=== PATIENT | female | born 1950 | race Caucasian/White ===

== ENCOUNTER 2018-06-29 15:51 | Inpatient (IN) | payer MEDICARE ==
[2018-06-29] VITALS (9 sets, daily range): BP systolic 84–121; BP diastolic 52–64
[~2018-06-29] VITALS: Ht 162.6 cm; Wt 115.3 kg
[~2018-06-29 15:51] MED LIST: ADVAIR DISK1 IN; ADVAIR DISK1 INH; ALPRAZOLAM0.25 MG PO; ATORVASTATIN CA40 MG PO; BAYER LOW81 MG OR; COZAAR50 MG PO; CRESTOR10 MG PO; DEXILANT60 MG PO; DUONEB INH; EC ASPIRIN325 MG PO; GABAPENTIN300 M2 PO; LANTUS SOL100 UNIT/M SC; LANTUS100 MG/ML SC; LASIX40 MG PO; LEVEMIR SC; LEVOTHYROXIN75 MCG PO; LEXAPRO20 MG PO; LOPRESSOR50 MG PO; LOSARTAN POT100 MG PO; METOCLOPRAM5 MG PO; METOPROLOL50 MG PO; NOVOLOG100 IU/1 M SC; NOVOLOG100 UNIT/M SC; NYSTATIN100000 M1 PO; PEPCID40 MG OR; PLAVIX75 MG PO; PREDNISONE10 MG PO; PREDNISONE20 MG PO; PRILOSEC20 MG/CAP PO; PROAIR HFA IN; PROTONIX40 M2 PO; PROTONIX40 MG PO; REPATHA140 MG/ML IJ; SINGULAIR10 MG PO; SPIRIVA RE1.25 MCG/A PO; VENTOLIN HFA IN; WELLBUTRIN150 M2 PO; WELLBUTRIN75 MG OR; ZOFRAN ODT8 MG SL
--- NOTE | 2018-06-29 16:05 | NUR ---
PT ARRIVED TO UNIT.
--- NOTE | 2018-06-29 16:25 | NUR ---
PT TO ICU 8 DIRECT ADMIT. PT WEIGHED & CHANGED INTO GOWN. #20 IV ESTABLISHED IN RIGHT AC, LABS DRAWN, ACCUCHECK COMPLETED 225. PHARMACY @BEDSIDE FOR MED REC
[2018-06-29 16:34] LABS: HEMATOCRIT 37.7 % (37.0-47.0); HEMOGLOBIN 12.1 g/dl (12.0-16.0); IMMATURE GRANULOCYTES 0.6 % (0.0-5.0); MEAN CELL VOLUME 86.5 fL CALC (80.0-100.0); MEAN CORPUSCULAR HGB 27.8 pG CALC (26.0-32.0); MEAN CORPUSCULAR HGB CONC 32.1 g/L CALC (32.0-36.0); NEUT# 9.04 thou/uL (2.00-7.15); RED BLOOD COUNT 4.36 mill/uL (4.20-5.60); RED CELL DISTRI WIDTH 13.8 % (11.5-15.5)
--- NOTE | 2018-06-29 16:55 | NUR ---
FOOT CRADDLE PLACED FOR COMFORT TO BILATERAL FEET. SOCKS NOT PLACED DUE TO RIGHT BIG TOENAIL. PT REQUESTED THE FAN ON IN ROOM. 1 VISITOR @BEDSIDE. PT STATES SHE HAD A "BAD REACTION" TO MORPHINE A LONG TIME AGO. STATES HER BP "BOTTOMED OUT" BUT DOES NOT WANT TO PLACE MORPHINE ON HER ALLERGY LIST. HUMAN RESOURCES ASSOCIATE NOTIFIED.
[2018-06-29 16:56] LABS: ALKALINE PHOSPHATASE 106 u/l (38-126); ANION GAP 11 (6-22 (CALC)); BILIRUBIN, TOTAL 0.3 mg/dL (0.0-1.4); BUN 22 mg/dL (8-23); BUN/CREATININE RATIO 23 (12-20 (CALC)); C-REACTIVE PROTEIN 0.9 mg/dL (0-0.9); CARBON DIOXIDE 29 mmol/l (22-30); CHLORIDE 105 mmol/l (95-108); CREATININE 0.9 mg/dL (0.5-1.0); GFR > 60 ML/MIN (>=60 (CALC)); GFR FOR AFR.AMER. > 60 ML/MIN (>=60 (CALC)); POTASSIUM 3.9 mmol/l (3.5-5.1); SGOT/AST 15 u/l (9-36); SGPT/ALT 23 u/l (11-66); SODIUM 141 mmol/l (137-146); TOTAL PROTEIN 5.6 g/dL (6.3-8.2)
[2018-06-29] MEDS ORDERED: CRESTOR5 MG PO (16:58)
[2018-06-29 17:00] LABS: ALBUMIN 3.1 g/dL (3.2-5.0)
[2018-06-29] MEDS ORDERED: RANITIDINE150 M1 PO (17:03)
[2018-06-29] MEDS ORDERED: BENADRYL25 M1 PO (17:04)
[2018-06-29] MEDS ORDERED: PREDNISONE10 MG PO (17:05)
[2018-06-29] MEDS ORDERED: DOXYCYCL HYC100 MG PO (17:06)
[2018-06-29] MEDS ORDERED: ONDANSETRON HCL4 MG PO (17:08)
[2018-06-29] MEDS ORDERED: TRIAMCINOLON0.11 TOP (17:10)
--- NOTE | 2018-06-29 17:38 | NUR ---
PT MEDICATED FOR GENERALIZED PAIN OF 7/10 FROM PAINFUL/ITCHY BLISTERS/WOUNDS. PT TALKING TO HER SISTER ON CELLPHONE. PT CONTINUE TO MONITOR PTS PAIN & COMFORT LEVEL.
--- NOTE | 2018-06-29 17:50 | NUR ---
DR NEGRON & NEGRO,BROOKE @BEDSIDE ASSESSING PT. PT ADVISED TO CALL STAFF IMMEDIATELY IF SHE HAS TROUBLE BREATHING OR SWALLOWING. PT STATES THIS STARTED RASH/HIVES IN LATE APRIL. PCP SENT HER TO [facility]. WORSENED THIS WEEK.
--- NOTE | 2018-06-29 18:01 | NUR ---
FULL LIQUID TRAY DELIVERED TO PT. 2 VISITORS @BEDSIDE.
--- NOTE | 2018-06-29 18:15 | NUR ---
FAMILY @BEDSIDE CONFIRMED PT HAS ALLERGY TO ERYTHROMYCIN, NOT AZYTHROMYCIN. ACCUCHECK 126. PT HAPPY/PLAYFUL WITH FAMILY.
--- NOTE | 2018-06-29 18:48 | NUR ---
PTS DAUGHTER STATES PCP CHANGED XANAX DOSAGE TO 0.50MG BID.
--- NOTE | 2018-06-29 19:17 | NUR ---
BEDSIDE REPORT RECEIVED FROM TASNEEM KESSLER. PT SITTING UP IN BED WITH FAMILY AT BEDSIDE; ALERT AND ORIENTED. C/O MILD PAIN TO SORES ON SKIN AND IN MOUTH. RESPIRATIONS EVEN AND UNLABORED ON 2L OF OXYGEN VIA NC. PLAN OF CARE DISCUSSED. PT ENCOURAGED TO VERABALIZE CONCERNS. STATES UNDERSTANDING. SAFETY MEASURES IN PLACE. CALL LIGHT WITHIN REACH.
--- NOTE | 2018-06-29 21:58 | NUR ---
PT RESTING IN BED NOW ON LEFT SIDE; VS STABLE AND BLOOD SUGARS NORMAL. ALL MEDICATIONS GIVEN AND PT REPORTS SOME PAIN RELIEF AFTER TRIAMCINOLONE CREAM WAS APPLIED TO BLISTERS. HS SNACK GIVEN. IV SITE TO RAC APPEARS HEALTHY AND FLUSHES. CALL LIGHT WITHIN REACH.
[2018-06-30] VITALS (8 sets, daily range): BP systolic 122–156; BP diastolic 46–85
--- NOTE | 2018-06-30 00:01 | NUR ---
UP TO BATHROOM TO VOID AT THIS TIME; PT AMBULATED WITH ONE PERSON ASSIST. HAS SOME EXERTIONAL SOB. OXYGEN SATURATIONS REMAIN ABOVE 90% ON OXYGEN; NO SIGNS OF RESPIRATORY DISTRESS. MIDNIGHT ACCU CHECK 119. PT HAS NO REQUESTS OR CONCERNS AT THIS TIME; VERY PLEASANT. CALL LIGHT SYSTEM REVIEWED AND WITHIN REACH.
--- NOTE | 2018-06-30 02:16 | NUR ---
PT ASLEEP WITH NO SIGNS OF DISTRESS ON LEFT SIDE; RESPIRATIONS EVEN AND UNLABORED ON OXYGEN. BLOOD SUGAR DECREASING; WILL CONTINUE TO MONITOR. CALL LIGHT IN REACH.
--- NOTE | 2018-06-30 04:30 | NUR ---
PT WITH RESTESS SLEEP AT THIS TIME; SNORING NOTED AND SHORT PERIODS OF APNEA; OXYGEN SATURATION DECREASES TO LOW 80'S DURING THESE TIMES AND IMMEDIATELY INCREASES TO 90'S. VS STABLE. ACCU CHECK WNL.
--- NOTE | 2018-06-30 06:20 | NUR ---
PT AWAKENED WITH VERBAL STIMULI FOR MORNING MEDICATIONS. SHE STATES THAT SHE SLEPT WELL. AMBULATED TO THE BATHROOM WITH UNSTEADY GAIT AT THIS TIME TO VOID. NO ACUTE CHANGES IN CONDITION THROUGHOUT THE NIGHT. SAFETY MEASURES IN PLACE. CALL LIGHT WITHIN REACH.
--- NOTE | 2018-06-30 07:20 | NUR ---
REPORT RECEIVED FROM TASNEEM BENJAMIN;PT RESTING IN SEMI FOWLERS POSITION;INTRODUCED SELF TO PT AND POC DISCUSSED;PT ALERT AND ORIENTED X3;VS OBTAINED AND ASSESSMENT COMPLETED;RESPIRATIONS EVEN AND UNLABORED,SHALLOW ON OXYGEN @ 2L VIA NC WITH 98% O2 SATURATION,NON-PRODUCTIVE COUGH NOTED AT TIMES;ABDOMEN DISTENDED/SOFT ON PALPATION AND ACTIVE IN ALL 4 QUADRANTS;STRONG PEDAL PULSES;ACCUCHECK OF 143 OBTAINED AND WNL;#20G TO RAC FLUSHED AND PATENT,SITE APPEARS HEALTHY AND IS SECURED WITH TAPE;OPENED AND SCABBED SORES NOTED THROUGHOUT BODY,PT DENIES ANY CURRENT PAIN STATES "JUST ITCHY AT TIMES";PAIN SCALE AND REPORTING EDUCATED;PT VERY PLEASANT;ALL SAFETY PRECAUTIONS REINFORCED;INSTUCTED PT TO CALL FOR ASSISTANCE IF NEEDED;FALL PRECAUTIONS IN PLACE WITH BED IN THE LOWEST POSITION;CALL LIGHT IN REACH;WILL CONTINUE TO MONITOR
--- NOTE | 2018-06-30 09:00 | NUR ---
PT APPEARS TO BE SLEEPING IN SEMI FOWLERS POSITION,WAKES EASILY TO VERBAL STIMULI;RESPIRATIONS REMAIN EVEN AND UNLABORED,SHALLOW ON OXYGEN @ 2L VIA NC;EXERTIONAL SOB NOTED AT TIMES;PT DENIES ANY CURRENT PAIN OR NEEDS;ACCUCHECK OF 215 OBTAINED;ALL MORNING MEDICATIONS ADMINISTERED AT THIS TIME AND PT TOLERATED WELL;IV SITE REMAINS PATENT TO RAC;PT INSTRUCTED TO CALL FOR ASSISTANCE IF NEEDED;FALL PRECAUTIONS REMAIN IN PLACE;CALL LIGHT IN REACH;WILL CONTINUE TO MONITOR
--- NOTE | 2018-06-30 11:20 | NUR ---
PT RESTING IN SEMI FOWLERS POSI
--- NOTE | 2018-06-30 11:20 | NUR ---
PT RESTING IN SEMI FOWLERS POSITION;RESPIRATIONS EVEN AND UNLABORED ON O2 @ 2L VIA NC;PT DENIES ANY CURRENT PAIN OR NEEDS;ACCUCHECK OF 227 OBTAINED;ASSESSMENT UNCHARGED AT THIS TIME;LUNCH TRAY SET UP PROVIDED;PT ENCOURAGED TO CALL FOR ASSISTANCE IF NEEDED;CALL LIGHT IN REACH;WILL CONTINUE TO MONITOR
--- NOTE | 2018-06-30 11:30 | NUR ---
PT AMBULATED WITH A 1 PERSON ASSIST AND UNSTEADY GAIT TO RESTROOM AND VOIDED CLEAR/YELLOW URINE;PT ALSO HAD A LARGE BROWN/FORMED BM;ORAL CARE PROVIDED;PT RE-POSITIONED BACK INTO BED;EXERTIONAL SOB NOTED WITH O2 SATURATIONS REMAINING ABOVE 90% AT ALL TIMES;PT DENIES ANY ADDITIONAL NEEDS;WILL CONTINUE TO MONITOR
--- NOTE | 2018-06-30 15:00 | NUR ---
PT RESTING IN SEMI FOWLERS POSITION;PT AMBULATED WITH 1 PERSON ASSIST AND UNSTEADY GAIT TO RESTROOM AND VOIDED CLEAR/YELLOW URINE;PT DENIES ANY CURRENT PAIN;RESPIRATIONS EVEN AND UNLABORED ON 02 @ 2L VIA NC;PT AND WRITTER DISCUSS POC AND PT VERBALIZES UNDERSTANDING ON TRANSFER TO MED/SURG;FALL PRECAUTIONS REMAIN IN PLACE WITH CALL LIGHT IN REACH;WILL CONTINUE TO MONITOR
--- NOTE | 2018-06-30 15:40 | NUR ---
PT TRANSFERRED TO MED/SURG ROOM 272 AT THIS TIME IN STABLE CONDITION RELINQUISH CARE TO TASNEEM KEENAN.
--- NOTE | 2018-06-30 15:42 | NUR ---
PT CAME FROM ICU VIA WHEELCHAIR BY MUSEUM DOCENT. MUSEUM DOCENT ASSIST PT TO SCALE THEN TO BED. SAFETY PRECAUTIONS REINFORCED AND CALL LIGHT IN REACH.
--- NOTE | 2018-06-30 16:40 | NUR ---
ASSESSMENT DONE TELE IN PLACE. PT IS A&O X3 . PT DENIES PAIN AT THIS TIME. PT STATED SHE IS ITCHY. PT HAS SCATTERED RASH WITH BILSTERS AND LESIONS IN HER BODY. O2 AT 2L/MIN VIA NC. CALL LIGHT IN REACH.
--- NOTE | 2018-06-30 19:42 | NUR ---
PT RESTING IN BED WATCHING TV. PT DENIES PAIN. RESP EVEN AND UNLABORED WITH O2 2L IN PLACE. TELE ON. LUNGS CLEAR BILAT. ABD SOFT, ACTIVE BOWEL SOUNDS. PEDAL PULSES PALPATED BILAT. IV RAC PATENT; FLUSHED WITHOUT DIFFICULTY. SCATTERED RASH WITH BLISTERS AND LESIONS ON BACK, ARMS, ABD, AND LEGS. PT REPOSITIONED FOR COMFORT. SAFETY PRECAUTIONS REINFORCED. FREQUENT ROUNDS MADE. CALL LIGHT WITHIN REACH.
--- NOTE | 2018-06-30 20:53 | NUR ---
ACCU CHECK: 423. PHONE CALL MADE TO DR DARRYL DR NOTIFIED OF ACCU CHECK AND THAT STAT BLOOD GLUCOSE WAS ORDERED. NO NEW ORDERS AT THIS TIME.
[2018-07-01] VITALS (7 sets, daily range): BP systolic 113–149; BP diastolic 52–77
--- NOTE | 2018-07-01 00:10 | NUR ---
PT SLEEPING WITH EYES CLOSED. RESP EVEN AND UNLABORED WITH O2 IN PLACE. NO DISTRESS NOTED. TELE ON. CALL LIGHT WITHIN REACH.
--- NOTE | 2018-07-01 04:15 | NUR ---
ASSESSMENT UNCHANGED, PT SLEEPING WITH EYES CLOSED. NO DISTRESS NOTED. TELE ON. CALL LIGHT WITHIN REACH.
--- NOTE | 2018-07-01 09:00 | NUR ---
PT AWAKE, ALERT, ORIENTED X 3. PT HAS RASHY, SCALY, BLISTERY SKIN, WHICH IS BEING TREATED. NO DISTRESS, NO COMPLAINTS OF PAIN.
--- NOTE | 2018-07-01 09:30 | NUR ---
WHILE SITTING IN CHAIR, PT APPARENTLY KICKED AGAINST BEDSIDE TABLE. GREAT TOENAIL ON RIGHT SIDE WAS ALMOST COMPLETELY REMOVED. TOENAIL WAS NOT ABLE TO BE FIT BACK INTO PLACE, SO IT WAS SNIPPED OFF. NEOSPORIN WAS THEN APPLIED TO NAILBED AND WOUND WAS WRAPPED APPROPRIATELY. PT TOLERATED ALL WELL, STATES THAT SHE HAS PERIPHERAL NEUROPATHY AND DOES NOT FEEL ANYTHING THERE ANYWAY.
--- NOTE | 2018-07-01 13:15 | NUR ---
DR ANDREWS IN TO SEE PT, SEES IMPROVEMENT IN HER STATUS. PT STATES THE ITCHING IS LESS THAN EARLIER, RELIEVED.
--- NOTE | 2018-07-01 17:37 | NUR ---
PT HAS BEEN RESTING IN THE BED, NO DISTRESS, NO COMPLAINTS.
--- NOTE | 2018-07-01 19:40 | NUR ---
PT RESTING IN BED WATCHING TV. PT ALERT AND ORIENTED. PT DENIES PAIN. RESP EVEN AND UNLABORED ON O2 2L. TELE ON. LUNGS CLEAR BILAT. ABD SOFT, ACTIVE BOWEL SOUNDS. PT REPORTS HAVING A BM TODAY. PEDAL PULSES PALPATED BILAT. IV RAC PATENT; FLUSHED WITHOUT DIFFICULTY. SCATTERED RASH WITH BLISTERS AND LESIONS ON BACK, ARMS, ABD AND LEGS. PT REPORTS IMPROVEMENT IN SKIN. PT ENCOURAGED TO CALL FOR ASSISTANCE. FREQUENT ROUNDS MADE. CALL LIGHT WITHIN REACH.
--- NOTE | 2018-07-02 | NUR ---
PT WOKE FOR VITALS. RESP EVEN AND UNLABORED WITH O2. PT DENIES PAIN. TELE ON. CALL LIGHT WITHIN REACH.
[2018-07-02 04:02] VITALS: BP 114/51
--- NOTE | 2018-07-02 04:02 | NUR ---
PT WOKE FOR MORNING VITALS. ASSESSMENT UNCHANGED. RESP EVEN AND UNLABORED WITH O2 2L IN PLACE. PT REPORTS BEING TIRED AND WANTING TO GO BACK TO SLEEP. CALL LIGHT WITHIN REACH.
--- NOTE | 2018-07-02 06:00 | NUR ---
PHONE CALL FROM [employer] NELLA IN REGARDS TO PT HR, "SINUS TACH 120". UPON ENTRY IN ROOM PT WAS SITTING ON SIDE OF BED. PT REPORTED GETTING OUT OF BED WITHOUT ASSISTANCE. PT REPORTED " I DID NOT WANT TO BOTHER ANYONE, I DID SLIP AND MY LEFT KNEE HIT THE CHAIR. I AM NOT HURT ANYWHERE." NO SIGNS OF TRAUMA ON LEFT KNEE, FULL RANGE OF MOTION. PT STATES "I DID NOT HIT THE FLOOR." PT ALSO STATES " I KNOW I SHOULD HAVE CALLED FOR ASSISTANCE, IT WON'T HAPPEN AGAIN." PETROLEUM REFINERY WORKER LITO CALLED TO FLOOR AND NOTIFIED OF SITUATION. PT HAD BEEN ENCOURAGED TO CALL FOR ASSISTANCE TO AMBULATE. BED ALARM NOW IN PLACE FOR SAFETY. MD WILL BE NOTIFIED WITH ANY CHANGE IN PT CONDITION. SAFETY PRECAUTIONS REINFORCED. FREQUENT ROUNDS MADE. CALL LIGHT WITHIN REACH.
[2018-07-02 08:00] VITALS: BP 127/59
--- NOTE | 2018-07-02 08:10 | NUR ---
PT AWAKE, ALERT, ORIENTED. PT STATES THAT HER SKIN CONDITION IS IMPROVING DAILY. LUNGS CLEAR, 2 LPM. NO DISTRESS OR DISCOMFORT NOTED.
--- NOTE | 2018-07-02 12:47 | NUR ---
IV SITE CHANGED PER OCCLUSION. NO CHANGE IN PT STATUS NOTED.
[2018-07-02 13:23] VITALS: BP 115/62
[2018-07-02 16:00] VITALS: BP 124/74
--- NOTE | 2018-07-02 16:06 | NUR ---
PT HAS BEEN CALLING APPROPRIATELY NEEDED TO WALK TO BR. NO REPORT OF PAIN, NO DISTRESS NOTED. PT PROVIDED VISCOUS LIDOCAINE PER MOUTH AND THROAT DISCOMFORT.
--- NOTE | 2018-07-02 18:19 | NUR ---
PT MEDICATED FOR DISCOMFORT, HELPED BY TYLENOL.
--- NOTE | 2018-07-02 19:00 | NUR ---
RECEIVED CHANGE OF SHIFT REPORT FROM TASNEEM BELL. PT ALERT AND ORIENTED AND LYING IN BED. DENIES PAIN. NO APPARENT ACUTE DISTRESS NOTED. WILL CONTINUE TO MONITOR.
--- NOTE | 2018-07-03 | NUR ---
PT RESTING QUIETLY WITH EYES CLOSED AND APPEARS TO BE ASLEEP. RESP EVEN AND NON LABORED. NO APPARENT ACUTE DISTRESS NOTED AT THIS TIME. WILL CONTINUE TO MONITOR.
[2018-07-03 00:06] VITALS: BP 140/67
[2018-07-03 05:21] VITALS: BP 140/76
[2018-07-03 07:30] VITALS: BP 126/30
--- NOTE | 2018-07-03 07:30 | NUR ---
PT IS RELAXING IN BED WITH NO DISTRESS NOTED. IV SITE IS FREE FROM REDNESS OR EDEMA. HR IS REG, PULSES ARE STRONG X4, ABD IS SOFT WITH ACTIVE BS. BREATH SOUNDS ARE CLEAR, BILATERALLY. CONTINUE TO OSBERVE AND MONITOR. TELE MONITOR IN PLACE.
[2018-07-03 09:27] LABS: MEAN CELL VOLUME 86.9 fL CALC (80.0-100.0); MEAN CORPUSCULAR HGB 27.8 pG CALC (26.0-32.0); RED BLOOD COUNT 5.11 mill/uL (4.20-5.60); RED CELL DISTRI WIDTH 13.3 % (11.5-15.5)
[2018-07-03 09:39] LABS: HEMATOCRIT 44.4 % (37.0-47.0); HEMOGLOBIN 14.2 g/dl (12.0-16.0)
[2018-07-03 09:47] LABS: BUN 25 mg/dL (8-23); BUN/CREATININE RATIO 25 (12-20 (CALC)); GFR 55 ML/MIN (>=60 (CALC)); GFR FOR AFR.AMER. > 60 ML/MIN (>=60 (CALC)); MAGNESIUM 2.3 mg/dL (1.6-2.3); POTASSIUM 4.6 mmol/l (3.5-5.1); SODIUM 139 mmol/l (137-146)
[2018-07-03 09:58] LABS: ANION GAP 14 (6-22 (CALC)); CARBON DIOXIDE 40 mmol/l (22-30); CHLORIDE 90 mmol/l (95-108)
--- NOTE | 2018-07-03 12:00 | NUR ---
PT HAS BEEN VISITING WITH FAMILY,NO DISTRESS NOTED. IV SITE IS FREE FROM REDNESS OR EDEMA. SAT IN THE CHAIR FOR LUNCH, CONTINUE TO OBSERVE AND MONITOR.
[2018-07-03 12:30] VITALS: BP 139/70
[2018-07-03 16:00] VITALS: BP 178/87
--- NOTE | 2018-07-03 16:00 | NUR ---
PT IS RELAXING IN BED WITH NO DISTRESS NOTED. IV SITE IS FREE FROM REDNESS OR EDEMA.
--- NOTE | 2018-07-03 19:00 | NUR ---
RECEIVED CHANGE OF SHIFT REPORT FROM HUDSON VALLECILLO. PT ALERT AND ORIENTED AND LYING 1N BED. DENIES PAIN OR DISCOMFORT AT THIS TIME. NO APPARENT ACUTE DISTRESS NOTED. WILL CONTINUE TO MONITOR.
[2018-07-03 22:20] LABS: URINE BILIRUBIN - DIPSTICK NEGATIVE (NEGATIVE); URINE BLOOD DIPSTICK NEGATIVE (NEGATIVE); URINE COLOR YELLOW; URINE GLUCOSE - DIPSTICK >=1000 mg/dL (NEGATIVE); URINE KETONE NEGATIVE (NEGATIVE); URINE LEUK ESTERASE NEGATIVE (NEGATIVE); URINE NITRITE - DIPSTICK NEGATIVE (Negative); URINE PROTEIN - DIPSTICK NEGATIVE (NEG-TRACE); URINE SPECIFIC GRAVITY 1.015; URINE UROBILINOGEN - DIPSTICK 0.2 E.U./dL (0.2)
[2018-07-03 22:23] LABS: URINE CLARITY CLEAR
--- NOTE | 2018-07-04 | NUR ---
PT RESTING QUIETLY WITH EYES CLOSED AND APPEARS TO BE ASLEEP. NO APPARENT ACUTE DISTRESS NOTED. WILL CONTINUE TO MONITOR.
[2018-07-04 00:35] VITALS: BP 125/56
[2018-07-04 04:27] VITALS: BP 138/69
--- NOTE | 2018-07-04 05:00 | NUR ---
PT SLEPT WELL DURING IN THE NIGHT. NO APPARENT ACUTE CHANGES NOTED IN PT'S CONDITION.
[2018-07-04 05:26] LABS: ANION GAP 12 (6-22 (CALC)); BUN 28 mg/dL (8-23); BUN/CREATININE RATIO 30 (12-20 (CALC)); CARBON DIOXIDE 35 mmol/l (22-30); CHLORIDE 96 mmol/l (95-108); CREATININE 0.9 mg/dL (0.5-1.0); GFR > 60 ML/MIN (>=60 (CALC)); GFR FOR AFR.AMER. > 60 ML/MIN (>=60 (CALC)); MAGNESIUM 2.3 mg/dL (1.6-2.3); POTASSIUM 4.7 mmol/l (3.5-5.1); SODIUM 138 mmol/l (137-146)
--- NOTE | 2018-07-04 07:00 | NUR ---
REPORT RECEIVED FROM TASNEEM NATION;PT APPEARS TO BE SLEEPING IN SUPINE POSITION;NO S/S OF DISTRESS NOTED;RESPIRATIONS EVEN AND UNLABORED ON RA;IV FLUIDS APPEAR PATENT INFUSING @ 100ML/HR;TELE MONITOR IN PLACE;FALL PRECAUTIONS IN PLACE WITH BED IN THE LOWEST POSITION;CALL LIGHT IN REACH;WILL CONTINUE TO MONITOR
--- NOTE | 2018-07-04 07:30 | NUR ---
PT OOB RESTING IN RECLINER EATING BREAKFAST;VS OBTAINED AND ASSESSMENT COMPLETED;PT DENIES ANY CURRENT PAIN OR DISCOMFORTS,PAIN SCALE AND REPORTING RE-EDUCATED;RESPIRATIONS EVEN AND UNLABORED,SHALLOW ON 02 @ 2L VIA NC,CLEAR LUNG SOUNDS NOTED;NON-PRODUCTIVE COUGH NOTED;ABDOMEN DISTENDED/SOFT ON PALPATION AND ACTIVE IN ALL 4 QUADRANTS;DRIED BLISTERS NOTED THROUGHOUT,BAND AID NOTED TO RIGHT GREATER TOE FROM LOSS OF TOENAIL;TELE MONITOR IN PLACE;#20G TO RIGHT FOREARM INFUSING NS @ 100ML/HR,SITE APPEARS HEALTHY;ACCUCHECK OF 231 OBTAINED;PT DENIES ANY CURRENT NEEDS AND IS INSTUCTED TO CALL FOR ASSISTANCE IF NEEDED;FALL PRECAUTIONS IN PLACE WITH CALL LIGHT IN REACH;WILL CONTINUE TO MONITOR
[2018-07-04 07:34] VITALS: BP 168/80
--- NOTE | 2018-07-04 10:45 | NUR ---
PT AMBULATING HALLWAYS WITH PHYSICAL THERAPY
--- NOTE | 2018-07-04 10:53 | NUR ---
PT WAS SEEN TODAY FOR GT. OOB INDEPENDENTLY. AMB WITH IV POLE WHILE THERAPIST HOLDS THE O2 TANK. SHE COMPLETED AT LEAST 70 FT. X 4 WITH 1 MIN. REST PERIOD IN BETWEEN SETS. SOB WAS NOTED HOWEVER SPO2 REMAINED BETWEEN 99-93%. PT RETURNED BACK TO HER ROOM AND REQUESTED TO SIT IN THE RECLINER. REATTACHED IV PLUG AND O2 CORD TO WALL O2 SUPPLY. DESIRE LA BESIDE HER. NO ADVERSE RXNS NOTED OR REPORTED AT THE END OF TX.
[2018-07-04 11:03] VITALS: BP 160/81
--- NOTE | 2018-07-04 11:10 | NUR ---
PT OOB RESTING IN RECLINER;RESPIRATIONS EVEN AND UNLABORED ON O2 @ 2L VIA NC;PT DENIES ANY CURRENT PAIN OR NEEDS;ACCUCHECK OF 285 OBTAINED AND PT MEDICATED WITH 7 UNITS OF NOVOLOG PER ORDER;IV FLUIDS REMAIN PATENT INFUSING @ 100ML/HR;PT ENCOURAGED TO CALL FOR ASSISTANCE IF NEEDED;FALL PRECAUTIONS IN PLACE WITH CALL LIGHT IN REACH;WILL CONTINUE TO MONITOR
[2018-07-04] MEDS ORDERED: PREDNISONE20 MG PO (12:53)
[2018-07-04] MEDS ORDERED: TRAMADOL HCL50 MG PO (12:55)
[2018-07-04] MEDS ORDERED: ALPRAZOLAM0.25 MG PO (12:55)
[2018-07-04 15:21] VITALS: BP 146/67
--- NOTE | 2018-07-04 15:30 | NUR ---
PT UPDATED ON POC AND DISCHARGE TO [facility],VERBALIZES UNDERSTANDING;IV SITE REMOVED WITH CATHETER INTACT;PT DENIES ANY PAIN OR QUESTIONS;AWAITING TRANSPORTATION.
--- NOTE | 2018-07-04 16:27 | NUR ---
Discharge instructions given. Patient verbalizes understanding of same. Discharged in stable condition via [facility] with *Other. All belongings sent with pt.
== END 2018-07-04 16:27 | DRG 596 ==
LOC: ICU 15:51 → MS2 15:51
PROVIDERS: Nurse Practitioner Family; ADMIT Internal Medicine; ATTEND Internal Medicine
PROC: 3E0234Z Introduction of Serum, Toxoid and Vaccine into Muscle, Percutaneous Approach (ICD-10-PCS; principal; 2018-07-01)
DX: L10.0 Pemphigus vulgaris (principal); Z68.42 Body mass index [BMI] 45.0-49.9, adult; L50.9 Urticaria, unspecified; I25.10 Atherosclerotic heart disease of native coronary artery without angina pectoris; I10 Essential (primary) hypertension; J44.9 Chronic obstructive pulmonary disease, unspecified; E11.65 Type 2 diabetes mellitus with hyperglycemia; T38.0X5A Adverse effect of glucocorticoids and synthetic analogues, initial encounter; E66.01 Morbid (severe) obesity due to excess calories; E03.9 Hypothyroidism, unspecified; F41.1 Generalized anxiety disorder; M19.90 Unspecified osteoarthritis, unspecified site; R53.81 Other malaise; Z79.4 Long term (current) use of insulin; Z23 Encounter for immunization; Z95.1 Presence of aortocoronary bypass graft; Z86.73 Personal history of transient ischemic attack (TIA), and cerebral infarction without residual deficits
CPT/HCPCS: S0164

== ENCOUNTER 2018-07-19 16:21 | Emergency (ER) | payer MEDICARE ==
[~2018-07-19] VITALS: Ht 162.6 cm; Wt 116.6 kg
[~2018-07-19 16:21] MED LIST changes: +BENADRYL25 M1 PO; +CRESTOR5 MG PO; +DOXYCYCL HYC100 MG PO; +ONDANSETRON HCL4 MG PO; +RANITIDINE150 M1 PO; +TRAMADOL HCL50 MG PO; +TRIAMCINOLON0.11 TOP
[2018-07-19 16:34] LABS: HEMATOCRIT 44.9 % (37.0-47.0); HEMOGLOBIN 14.7 g/dl (12.0-16.0); IMMATURE GRANULOCYTES 0.9 % (0.0-5.0); MEAN CELL VOLUME 84.2 fL CALC (80.0-100.0); MEAN CORPUSCULAR HGB 27.6 pG CALC (26.0-32.0); MEAN CORPUSCULAR HGB CONC 32.7 g/L CALC (32.0-36.0); NEUT# 15.53 thou/uL (2.00-7.15); RED BLOOD COUNT 5.33 mill/uL (4.20-5.60); RED CELL DISTRI WIDTH 13.6 % (11.5-15.5)
[2018-07-19 16:47] VITALS: BP 90/51
[2018-07-19 16:56] LABS: CREATININE 1.3 mg/dL (0.5-1.0); POTASSIUM 3.9 mmol/l (3.5-5.1)
== END 2018-07-19 16:47 | disposition short-term general hospital (02) ==
LOC: ED 16:21
PROVIDERS: Family Medicine
DX: I63.9 Cerebral infarction, unspecified (principal); I48.91 Unspecified atrial fibrillation; R29.810 Facial weakness; R47.1 Dysarthria and anarthria; R27.8 Other lack of coordination; R53.1 Weakness; R29.706 NIHSS score 6; F41.9 Anxiety disorder, unspecified; I10 Essential (primary) hypertension; E11.9 Type 2 diabetes mellitus without complications; M19.90 Unspecified osteoarthritis, unspecified site; L10.0 Pemphigus vulgaris; Z86.73 Personal history of transient ischemic attack (TIA), and cerebral infarction without residual deficits; Z79.4 Long term (current) use of insulin

== ENCOUNTER 2018-07-31 15:20 | Inpatient (IN) | payer MEDICARE ==
[2018-07-31] VITALS (8 sets, daily range): BP systolic 114–130; BP diastolic 41–62
[~2018-07-31] VITALS: Ht 162.6 cm; Wt 107.2 kg
[~2018-07-31 15:20] MED LIST changes: +DEXILANT30 MG PO; -DEXILANT60 MG PO; -LOSARTAN POT100 MG PO; +LOSARTAN POT25 MG PO
[2018-07-31 17:09] LABS: HEMATOCRIT 35.5 % (37.0-47.0); HEMOGLOBIN 11.7 g/dl (12.0-16.0); IMMATURE GRANULOCYTES 0.9 % (0.0-5.0); MEAN CORPUSCULAR HGB 28.7 pG CALC (26.0-32.0); NEUT# 14.15 thou/uL (2.00-7.15); RED BLOOD COUNT 4.08 mill/uL (4.20-5.60); RED CELL DISTRI WIDTH 15.3 % (11.5-15.5)
[2018-07-31 17:25] LABS: ACT PARTIAL THROMBO TIME 22.3 SECONDS (20.0-32.5); PROTHROMBIN TIME 10.7 SECONDS (9.0-12.5)
[2018-07-31 17:27] LABS: ALBUMIN 2.8 g/dL (3.2-5.0); BILIRUBIN, TOTAL 0.4 mg/dL (0.0-1.4); CREATININE 1.1 mg/dL (0.5-1.0); POTASSIUM 5.1 mmol/l (3.5-5.1); TOTAL PROTEIN 4.9 g/dL (6.3-8.2)
[2018-07-31] MEDS ORDERED: ASPIRIN81 MG PO (17:47)
[2018-07-31] MEDS ORDERED: DIGOX250 MCG PO (17:52)
[2018-07-31 17:57] LABS: TSH, 3RD GENERATION 0.24 uIU/mL (0.47 - 4.68)
[2018-07-31] MEDS ORDERED: SINGULAIR10 MG PO (18:08)
[2018-07-31] MEDS ORDERED: PREDNISONE20 MG PO (18:08)
[2018-08-01] VITALS (10 sets, daily range): BP systolic 98–137; BP diastolic 35–71
[2018-08-01 05:07] LABS: HEMATOCRIT 35.9 % (37.0-47.0); HEMOGLOBIN 11.7 g/dl (12.0-16.0); MEAN CELL VOLUME 87.1 fL CALC (80.0-100.0); MEAN CORPUSCULAR HGB 28.4 pG CALC (26.0-32.0); MEAN CORPUSCULAR HGB CONC 32.6 g/L CALC (32.0-36.0); NEUT# 11.65 thou/uL (2.00-7.15); RED BLOOD COUNT 4.12 mill/uL (4.20-5.60); RED CELL DISTRI WIDTH 15.1 % (11.5-15.5)
[2018-08-01 05:21] LABS: ALBUMIN 2.9 g/dL (3.2-5.0); ALKALINE PHOSPHATASE 193 u/l (38-126); ANION GAP 11 (6-22 (CALC)); BILIRUBIN, TOTAL 0.3 mg/dL (0.0-1.4); BUN 26 mg/dL (8-23); BUN/CREATININE RATIO 31 (12-20 (CALC)); CARBON DIOXIDE 32 mmol/l (22-30); CHLORIDE 99 mmol/l (95-108); CREATININE 0.8 mg/dL (0.5-1.0); GFR > 60 ML/MIN (>=60 (CALC)); GFR FOR AFR.AMER. > 60 ML/MIN (>=60 (CALC)); MAGNESIUM 2.1 mg/dL (1.6-2.3); POTASSIUM 4.6 mmol/l (3.5-5.1); SGOT/AST 22 u/l (9-36); SGPT/ALT 146 u/l (11-66); SODIUM 137 mmol/l (137-146)
[2018-08-01 10:31] LABS: URINE BILIRUBIN - DIPSTICK NEGATIVE (NEGATIVE); URINE BLOOD DIPSTICK SMALL (NEGATIVE); URINE COLOR YELLOW; URINE GLUCOSE - DIPSTICK 500 mg/dL (NEGATIVE); URINE KETONE NEGATIVE (NEGATIVE); URINE LEUK ESTERASE NEGATIVE (Negative); URINE NITRITE - DIPSTICK NEGATIVE (Negative); URINE PROTEIN - DIPSTICK 30 mg/dL (NEG-TRACE); URINE SPECIFIC GRAVITY >=1.030; URINE UROBILINOGEN - DIPSTICK 0.2 E.U./dL (0.2)
[2018-08-01 10:34] LABS: URINE AMORPH SEDIMENT MODERATE hpf (NONE-FEW); URINE BACTERIA FEW hpf; URINE CLARITY HAZY; URINE EPITHELIAL CELLS MODERATE EPI/hpf (0-FEW); URINE WBC 0-2 WBC/hpf (0-5)
[2018-08-02] VITALS (18 sets, daily range): BP systolic 88–147; BP diastolic 45–83
[2018-08-03] VITALS (18 sets, daily range): BP systolic 101–170; BP diastolic 42–69
[2018-08-03 05:04] LABS: HEMATOCRIT 37.1 % (37.0-47.0); HEMOGLOBIN 11.8 g/dl (12.0-16.0); IMMATURE GRANULOCYTES 0.8 % (0.0-5.0); MEAN CELL VOLUME 87.7 fL CALC (80.0-100.0); MEAN CORPUSCULAR HGB 27.9 pG CALC (26.0-32.0); MEAN CORPUSCULAR HGB CONC 31.8 g/L CALC (32.0-36.0); NEUT# 7.29 thou/uL (2.00-7.15); RED BLOOD COUNT 4.23 mill/uL (4.20-5.60); RED CELL DISTRI WIDTH 15.2 % (11.5-15.5)
[2018-08-03 05:22] LABS: ALBUMIN 2.7 g/dL (3.2-5.0); ALKALINE PHOSPHATASE 197 u/l (38-126); ANION GAP 9 (6-22 (CALC)); BILIRUBIN, TOTAL 0.3 mg/dL (0.0-1.4); BUN 20 mg/dL (8-23); BUN/CREATININE RATIO 25 (12-20 (CALC)); CARBON DIOXIDE 37 mmol/l (22-30); CHLORIDE 97 mmol/l (95-108); CREATININE 0.8 mg/dL (0.5-1.0); GFR > 60 ML/MIN (>=60 (CALC)); GFR FOR AFR.AMER. > 60 ML/MIN (>=60 (CALC)); MAGNESIUM 2.1 mg/dL (1.6-2.3); POTASSIUM 4.9 mmol/l (3.5-5.1); SGPT/ALT 159 u/l (11-66); SODIUM 138 mmol/l (137-146)
[2018-08-03 05:23] LABS: SGOT/AST 76 u/l (9-36)
[2018-08-04] VITALS (19 sets, daily range): BP systolic 50–152; BP diastolic 37–76
[2018-08-05] VITALS (10 sets, daily range): BP systolic 113–147; BP diastolic 50–69
[2018-08-05] MEDS ORDERED: LOPRESSOR 550 MG/TAB PO (13:15)
[2018-08-05] MEDS ORDERED: ELIQUIS2.5 MG PO (13:17)
[2018-08-05] MEDS ORDERED: AMIODARONE200 MG PO (13:25)
[2018-08-05 14:38] LABS: URINE BILIRUBIN - DIPSTICK NEGATIVE (NEGATIVE); URINE BLOOD DIPSTICK NEGATIVE (NEGATIVE); URINE COLOR YELLOW; URINE GLUCOSE - DIPSTICK >=1000 mg/dL (NEGATIVE); URINE KETONE NEGATIVE (NEGATIVE); URINE LEUK ESTERASE NEGATIVE (Negative); URINE NITRITE - DIPSTICK NEGATIVE (Negative); URINE PH 5.5 (4.5-8.0); URINE PROTEIN - DIPSTICK NEGATIVE (NEG-TRACE); URINE UROBILINOGEN - DIPSTICK 0.2 E.U./dL (0.2)
[2018-08-05 14:49] LABS: URINE CLARITY CLEAR
== END 2018-08-05 15:45 | DRG 309 ==
LOC: ICU 15:20
PROVIDERS: ADMIT Internal Medicine; ATTEND Internal Medicine Nephrology
DX: R00.1 Bradycardia, unspecified (principal); L10.0 Pemphigus vulgaris; Z68.41 Body mass index [BMI] 40.0-44.9, adult; N17.9 Acute kidney failure, unspecified; N39.0 Urinary tract infection, site not specified; T46.2X5A Adverse effect of other antidysrhythmic drugs, initial encounter; T46.0X5A Adverse effect of cardiac-stimulant glycosides and drugs of similar action, initial encounter; T44.7X5A Adverse effect of beta-adrenoreceptor antagonists, initial encounter; I49.5 Sick sinus syndrome; I10 Essential (primary) hypertension; E11.65 Type 2 diabetes mellitus with hyperglycemia; J44.9 Chronic obstructive pulmonary disease, unspecified; I25.10 Atherosclerotic heart disease of native coronary artery without angina pectoris; M19.90 Unspecified osteoarthritis, unspecified site; F41.9 Anxiety disorder, unspecified; D64.9 Anemia, unspecified; E66.01 Morbid (severe) obesity due to excess calories; I08.0 Rheumatic disorders of both mitral and aortic valves; G47.33 Obstructive sleep apnea (adult) (pediatric); I48.1 Persistent atrial fibrillation; T38.0X5A Adverse effect of glucocorticoids and synthetic analogues, initial encounter; B96.20 Unspecified Escherichia coli [E. coli] as the cause of diseases classified elsewhere; Z86.73 Personal history of transient ischemic attack (TIA), and cerebral infarction without residual deficits; Z79.02 Long term (current) use of antithrombotics/antiplatelets; Z79.4 Long term (current) use of insulin; Z95.1 Presence of aortocoronary bypass graft
CPT/HCPCS: S0164

== ENCOUNTER 2018-10-17 14:16 | Inpatient (IN) | payer MEDICARE ==
[~2018-10-17] VITALS: Ht 162.6 cm; Wt 112.5 kg
[~2018-10-17 14:16] MED LIST changes: +AMIODARONE200 MG PO; +ASPIRIN81 MG PO; +DIGOX250 MCG PO; +ELIQUIS2.5 MG PO; +LOPRESSOR 550 MG/TAB PO
[2018-10-17 14:52] LABS: URINE BILIRUBIN - DIPSTICK NEGATIVE (NEGATIVE); URINE BLOOD DIPSTICK NEGATIVE (NEGATIVE); URINE COLOR YELLOW; URINE GLUCOSE - DIPSTICK NEGATIVE (NEGATIVE); URINE KETONE NEGATIVE (NEGATIVE); URINE LEUK ESTERASE NEGATIVE (NEGATIVE); URINE NITRITE - DIPSTICK NEGATIVE (Negative); URINE PH 7.5 (4.5-8.0); URINE PROTEIN - DIPSTICK NEGATIVE (NEG-TRACE); URINE UROBILINOGEN - DIPSTICK 0.2 E.U./dL (0.2)
[2018-10-17 15:03] LABS: URINE CLARITY CLEAR
[2018-10-17 15:14] LABS: HEMATOCRIT 39.2 % (37.0-47.0); HEMOGLOBIN 12.2 g/dl (12.0-16.0); IMMATURE GRANULOCYTES 0.7 % (0.0-5.0); MEAN CELL VOLUME 89.7 fL CALC (80.0-100.0); MEAN CORPUSCULAR HGB 27.9 pG CALC (26.0-32.0); MEAN CORPUSCULAR HGB CONC 31.1 g/L CALC (32.0-36.0); NEUT# 11.45 thou/uL (2.00-7.15); RED BLOOD COUNT 4.37 mill/uL (4.20-5.60); RED CELL DISTRI WIDTH 14.6 % (11.5-15.5)
[2018-10-17 15:28] LABS: ANION GAP 11 (6-22 (CALC)); BILIRUBIN, TOTAL 0.5 mg/dL (0.0-1.4); BUN 18 mg/dL (8-23); BUN/CREATININE RATIO 20 (12-20 (CALC)); CARBON DIOXIDE 30 mmol/l (22-30); CHLORIDE 100 mmol/l (95-108); CREATININE 0.9 mg/dL (0.5-1.0); GFR > 60 ML/MIN (>=60 (CALC)); GFR FOR AFR.AMER. > 60 ML/MIN (>=60 (CALC)); SGOT/AST 27 u/l (9-36); SODIUM 136 mmol/l (137-146)
[2018-10-17 15:30] LABS: ALBUMIN 3.4 g/dL (3.2-5.0); ALKALINE PHOSPHATASE 76 u/l (38-126)
[2018-10-17 15:58] LABS: TSH, 3RD GENERATION 0.56 uIU/mL (0.47 - 4.68)
[2018-10-17] MEDS ORDERED: LORTAB 5/3255 MG PO (16:09)
[2018-10-17 19:03] VITALS: BP 136/40
[2018-10-18] VITALS (16 sets, daily range): BP systolic 98–146; BP diastolic 40–72
[2018-10-18 06:18] LABS: HEMATOCRIT 36.1 % (37.0-47.0); HEMOGLOBIN 10.9 g/dl (12.0-16.0); IMMATURE GRANULOCYTES 0.8 % (0.0-5.0); MEAN CELL VOLUME 91.4 fL CALC (80.0-100.0); MEAN CORPUSCULAR HGB 27.6 pG CALC (26.0-32.0); MEAN CORPUSCULAR HGB CONC 30.2 g/L CALC (32.0-36.0); NEUT# 9.12 thou/uL (2.00-7.15); RED BLOOD COUNT 3.95 mill/uL (4.20-5.60); RED CELL DISTRI WIDTH 14.8 % (11.5-15.5)
[2018-10-18 06:25] LABS: ANION GAP 10 (6-22 (CALC)); BUN 18 mg/dL (8-23); BUN/CREATININE RATIO 21 (12-20 (CALC)); CARBON DIOXIDE 28 mmol/l (22-30); CHLORIDE 103 mmol/l (95-108); CREATININE 0.8 mg/dL (0.5-1.0); GFR > 60 ML/MIN (>=60 (CALC)); GFR FOR AFR.AMER. > 60 ML/MIN (>=60 (CALC)); POTASSIUM 4.9 mmol/l (3.5-5.1); SODIUM 136 mmol/l (137-146)
[2018-10-18 10:13] LABS: HEMATOCRIT 34.3 % (37.0-47.0); HEMOGLOBIN 10.6 g/dl (12.0-16.0); IMMATURE GRANULOCYTES 0.8 % (0.0-5.0); MEAN CORPUSCULAR HGB 28.1 pG CALC (26.0-32.0); MEAN CORPUSCULAR HGB CONC 30.9 g/L CALC (32.0-36.0); NEUT# 6.96 thou/uL (2.00-7.15); RED BLOOD COUNT 3.77 mill/uL (4.20-5.60); RED CELL DISTRI WIDTH 14.9 % (11.5-15.5)
[2018-10-18 17:39] LABS: URINE BILIRUBIN - DIPSTICK NEGATIVE (NEGATIVE); URINE BLOOD DIPSTICK NEGATIVE (NEGATIVE); URINE COLOR YELLOW; URINE GLUCOSE - DIPSTICK 250 mg/dL (NEGATIVE); URINE KETONE NEGATIVE (NEGATIVE); URINE LEUK ESTERASE TRACE (Negative); URINE NITRITE - DIPSTICK NEGATIVE (Negative); URINE PROTEIN - DIPSTICK NEGATIVE (NEG-TRACE); URINE SPECIFIC GRAVITY >=1.030; URINE UROBILINOGEN - DIPSTICK 0.2 E.U./dL (0.2)
[2018-10-18 17:44] LABS: URINE CLARITY HAZY
[2018-10-19] VITALS (16 sets, daily range): BP systolic 107–160; BP diastolic 42–68
[2018-10-19 04:55] LABS: HEMATOCRIT 34.9 % (37.0-47.0); HEMOGLOBIN 10.9 g/dl (12.0-16.0); IMMATURE GRANULOCYTES 0.5 % (0.0-5.0); MEAN CORPUSCULAR HGB 27.8 pG CALC (26.0-32.0); MEAN CORPUSCULAR HGB CONC 31.2 g/L CALC (32.0-36.0); NEUT# 7.15 thou/uL (2.00-7.15); RED BLOOD COUNT 3.92 mill/uL (4.20-5.60); RED CELL DISTRI WIDTH 14.6 % (11.5-15.5)
[2018-10-19 05:15] LABS: ALBUMIN 2.9 g/dL (3.2-5.0); ALKALINE PHOSPHATASE 67 u/l (38-126); ANION GAP 9 (6-22 (CALC)); BILIRUBIN, TOTAL 0.4 mg/dL (0.0-1.4); BUN 14 mg/dL (8-23); BUN/CREATININE RATIO 17 (12-20 (CALC)); CARBON DIOXIDE 29 mmol/l (22-30); CHLORIDE 103 mmol/l (95-108); CREATININE 0.8 mg/dL (0.5-1.0); GFR > 60 ML/MIN (>=60 (CALC)); GFR FOR AFR.AMER. > 60 ML/MIN (>=60 (CALC)); MAGNESIUM 1.9 mg/dL (1.6-2.3); SGOT/AST 27 u/l (9-36); SODIUM 135 mmol/l (137-146); TOTAL PROTEIN 5.4 g/dL (6.3-8.2)
[2018-10-20] VITALS (9 sets, daily range): BP systolic 100–150; BP diastolic 45–83
[2018-10-20 10:50] LABS: HEMATOCRIT 34.4 % (37.0-47.0); HEMOGLOBIN 10.9 g/dl (12.0-16.0); IMMATURE GRANULOCYTES 0.5 % (0.0-5.0); MEAN CELL VOLUME 88.2 fL CALC (80.0-100.0); MEAN CORPUSCULAR HGB 27.9 pG CALC (26.0-32.0); MEAN CORPUSCULAR HGB CONC 31.7 g/L CALC (32.0-36.0); NEUT# 7.73 thou/uL (2.00-7.15); RED BLOOD COUNT 3.9 mill/uL (4.20-5.60); RED CELL DISTRI WIDTH 14.6 % (11.5-15.5)
[2018-10-20 12:14] LABS: ALBUMIN 2.7 g/dL (3.2-5.0); ALKALINE PHOSPHATASE 64 u/l (38-126); ANION GAP 8 (6-22 (CALC)); BILIRUBIN, TOTAL 0.4 mg/dL (0.0-1.4); BUN 14 mg/dL (8-23); BUN/CREATININE RATIO 21 (12-20 (CALC)); CARBON DIOXIDE 30 mmol/l (22-30); CHLORIDE 101 mmol/l (95-108); CREATININE 0.7 mg/dL (0.5-1.0); GFR > 60 ML/MIN (>=60 (CALC)); GFR FOR AFR.AMER. > 60 ML/MIN (>=60 (CALC)); MAGNESIUM 1.8 mg/dL (1.6-2.3); POTASSIUM 4.5 mmol/l (3.5-5.1); SGOT/AST 25 u/l (9-36); SODIUM 135 mmol/l (137-146); TOTAL PROTEIN 5.1 g/dL (6.3-8.2)
[2018-10-21] VITALS (16 sets, daily range): BP systolic 95–149; BP diastolic 45–78
[2018-10-21 06:03] LABS: HEMATOCRIT 37.8 % (37.0-47.0); HEMOGLOBIN 11.8 g/dl (12.0-16.0); IMMATURE GRANULOCYTES 0.6 % (0.0-5.0); MEAN CELL VOLUME 88.3 fL CALC (80.0-100.0); MEAN CORPUSCULAR HGB 27.6 pG CALC (26.0-32.0); MEAN CORPUSCULAR HGB CONC 31.2 g/L CALC (32.0-36.0); NEUT# 8.98 thou/uL (2.00-7.15); RED BLOOD COUNT 4.28 mill/uL (4.20-5.60); RED CELL DISTRI WIDTH 14.6 % (11.5-15.5)
[2018-10-21 06:19] LABS: ALKALINE PHOSPHATASE 76 u/l (38-126); ANION GAP 13 (6-22 (CALC)); BILIRUBIN, TOTAL 0.5 mg/dL (0.0-1.4); BUN 16 mg/dL (8-23); BUN/CREATININE RATIO 19 (12-20 (CALC)); CARBON DIOXIDE 32 mmol/l (22-30); CHLORIDE 99 mmol/l (95-108); CREATININE 0.8 mg/dL (0.5-1.0); GFR > 60 ML/MIN (>=60 (CALC)); GFR FOR AFR.AMER. > 60 ML/MIN (>=60 (CALC)); MAGNESIUM 1.8 mg/dL (1.6-2.3); POTASSIUM 4.3 mmol/l (3.5-5.1); SGOT/AST 24 u/l (9-36); SODIUM 139 mmol/l (137-146); TOTAL PROTEIN 6.1 g/dL (6.3-8.2)
[2018-10-21 06:20] LABS: ALBUMIN 3.5 g/dL (3.2-5.0)
[2018-10-22] VITALS (12 sets, daily range): BP systolic 104–144; BP diastolic 43–75
[2018-10-23] VITALS (13 sets, daily range): BP systolic 114–147; BP diastolic 43–72
[2018-10-23 06:11] LABS: HEMATOCRIT 38.8 % (37.0-47.0); IMMATURE GRANULOCYTES 1.2 % (0.0-5.0); MEAN CELL VOLUME 88.8 fL CALC (80.0-100.0); MEAN CORPUSCULAR HGB 27.5 pG CALC (26.0-32.0); MEAN CORPUSCULAR HGB CONC 30.9 g/L CALC (32.0-36.0); NEUT# 11.44 thou/uL (2.00-7.15); RED BLOOD COUNT 4.37 mill/uL (4.20-5.60); RED CELL DISTRI WIDTH 14.5 % (11.5-15.5)
[2018-10-23 06:51] LABS: ALBUMIN 3.6 g/dL (3.2-5.0); ALKALINE PHOSPHATASE 82 u/l (38-126); ANION GAP 17 (6-22 (CALC)); BILIRUBIN, TOTAL 0.5 mg/dL (0.0-1.4); BUN 18 mg/dL (8-23); BUN/CREATININE RATIO 23 (12-20 (CALC)); CARBON DIOXIDE 28 mmol/l (22-30); CHLORIDE 97 mmol/l (95-108); CREATININE 0.8 mg/dL (0.5-1.0); GFR > 60 ML/MIN (>=60 (CALC)); GFR FOR AFR.AMER. > 60 ML/MIN (>=60 (CALC)); POTASSIUM 4.9 mmol/l (3.5-5.1); SGOT/AST 22 u/l (9-36); SODIUM 137 mmol/l (137-146); TOTAL PROTEIN 6.3 g/dL (6.3-8.2)
[2018-10-24] VITALS (19 sets, daily range): BP systolic 103–158; BP diastolic 44–89
[2018-10-25] VITALS (17 sets, daily range): BP systolic 109–156; BP diastolic 46–98
[2018-10-26] VITALS (11 sets, daily range): BP systolic 118–156; BP diastolic 53–75
[2018-10-26 06:12] LABS: HEMATOCRIT 36.9 % (37.0-47.0); HEMOGLOBIN 11.7 g/dl (12.0-16.0); IMMATURE GRANULOCYTES 1.7 % (0.0-5.0); MEAN CELL VOLUME 87.6 fL CALC (80.0-100.0); MEAN CORPUSCULAR HGB 27.8 pG CALC (26.0-32.0); MEAN CORPUSCULAR HGB CONC 31.7 g/L CALC (32.0-36.0); NEUT# 10.7 thou/uL (2.00-7.15); RED BLOOD COUNT 4.21 mill/uL (4.20-5.60); RED CELL DISTRI WIDTH 14.5 % (11.5-15.5)
[2018-10-26 06:31] LABS: ALKALINE PHOSPHATASE 74 u/l (38-126); ANION GAP 11 (6-22 (CALC)); BILIRUBIN, TOTAL 0.3 mg/dL (0.0-1.4); BUN 35 mg/dL (8-23); BUN/CREATININE RATIO 39 (12-20 (CALC)); CARBON DIOXIDE 34 mmol/l (22-30); CHLORIDE 93 mmol/l (95-108); CREATININE 0.9 mg/dL (0.5-1.0); GFR > 60 ML/MIN (>=60 (CALC)); GFR FOR AFR.AMER. > 60 ML/MIN (>=60 (CALC)); POTASSIUM 4.6 mmol/l (3.5-5.1); SGOT/AST 17 u/l (9-36); SODIUM 133 mmol/l (137-146); TOTAL PROTEIN 5.3 g/dL (6.3-8.2)
[2018-10-27] VITALS (19 sets, daily range): BP systolic 95–144; BP diastolic 39–73
[2018-10-28] VITALS (16 sets, daily range): BP systolic 96–148; BP diastolic 50–66
[2018-10-29] VITALS (11 sets, daily range): BP systolic 90–158; BP diastolic 41–79
[2018-10-29 06:09] LABS: HEMATOCRIT 40.2 % (37.0-47.0); HEMOGLOBIN 12.8 g/dl (12.0-16.0); MEAN CELL VOLUME 87.6 fL CALC (80.0-100.0); MEAN CORPUSCULAR HGB 27.9 pG CALC (26.0-32.0); MEAN CORPUSCULAR HGB CONC 31.8 g/L CALC (32.0-36.0); RED BLOOD COUNT 4.59 mill/uL (4.20-5.60); RED CELL DISTRI WIDTH 14.6 % (11.5-15.5)
[2018-10-29 06:17] LABS: ANION GAP 8 (6-22 (CALC)); BUN 27 mg/dL (8-23); BUN/CREATININE RATIO 38 (12-20 (CALC)); CARBON DIOXIDE 38 mmol/l (22-30); CHLORIDE 93 mmol/l (95-108); CREATININE 0.7 mg/dL (0.5-1.0); GFR > 60 ML/MIN (>=60 (CALC)); GFR FOR AFR.AMER. > 60 ML/MIN (>=60 (CALC)); POTASSIUM 4.3 mmol/l (3.5-5.1); SODIUM 134 mmol/l (137-146)
[2018-10-29] MEDS ORDERED: PREDNISONE10 MG PO (12:34)
[2018-10-29] MEDS ORDERED: TRELEGY ELLIPTA1 AER IN (12:34)
[2018-10-29] MEDS ORDERED: ALPRAZOLAM0.25 MG PO (12:34)
[2018-10-29] MEDS ORDERED: BUMETANIDE1 MG PO (12:34)
[2018-10-29] MEDS ORDERED: ALBUTEROL SUL0.083 % IN (12:34)
[2018-10-29] MEDS ORDERED: TRAMADOL HCL50 MG PO (12:34)
[2018-10-29] MEDS ORDERED: LOPRESSOR 550 MG/TAB PO (12:34)
[2018-10-30] VITALS (12 sets, daily range): BP systolic 117–154; BP diastolic 49–81
[2018-10-30 06:16] LABS: ANION GAP 8 (6-22 (CALC)); BUN 22 mg/dL (8-23); BUN/CREATININE RATIO 26 (12-20 (CALC)); CHLORIDE 93 mmol/l (95-108); CREATININE 0.8 mg/dL (0.5-1.0); GFR > 60 ML/MIN (>=60 (CALC)); GFR FOR AFR.AMER. > 60 ML/MIN (>=60 (CALC)); SODIUM 137 mmol/l (137-146)
[2018-10-30 06:17] LABS: CARBON DIOXIDE 40 mmol/l (22-30)
[2018-10-31] VITALS (12 sets, daily range): BP systolic 97–152; BP diastolic 44–67
== END 2018-10-31 13:29 | DRG 291 ==
LOC: ED 14:16 → ED-I 17:20 → ED 17:42 → MS2 17:43 → ICU 10-18 13:32
PROVIDERS: Emergency Medicine; Internal Medicine; ADMIT Internal Medicine; ATTEND Internal Medicine Nephrology
PROC: 5A09357 Assistance with Respiratory Ventilation, Less than 24 Consecutive Hours, Continuous Positive Airway Pressure (ICD-10-PCS; principal; 2018-10-18)
DX: I11.0 Hypertensive heart disease with heart failure (principal); J18.9 Pneumonia, unspecified organism; I50.31 Acute diastolic (congestive) heart failure; J96.22 Acute and chronic respiratory failure with hypercapnia; J96.21 Acute and chronic respiratory failure with hypoxia; J44.1 Chronic obstructive pulmonary disease with (acute) exacerbation; L10.0 Pemphigus vulgaris; Z68.41 Body mass index [BMI] 40.0-44.9, adult; J44.0 Chronic obstructive pulmonary disease with (acute) lower respiratory infection; E66.2 Morbid (severe) obesity with alveolar hypoventilation; G93.49 Other encephalopathy; F41.9 Anxiety disorder, unspecified; E11.9 Type 2 diabetes mellitus without complications; I25.10 Atherosclerotic heart disease of native coronary artery without angina pectoris; E03.9 Hypothyroidism, unspecified; G47.30 Sleep apnea, unspecified; R09.02 Hypoxemia; I34.0 Nonrheumatic mitral (valve) insufficiency; N20.0 Calculus of kidney; Y95 Nosocomial condition; Z87.440 Personal history of urinary (tract) infections; Z91.19 Patient's noncompliance with other medical treatment and regimen; Z95.1 Presence of aortocoronary bypass graft; Z79.52 Long term (current) use of systemic steroids; Z86.73 Personal history of transient ischemic attack (TIA), and cerebral infarction without residual deficits; Z79.4 Long term (current) use of insulin
CPT/HCPCS: G0378; J1756; J2060

== ENCOUNTER 2019-02-24 14:20 | Inpatient (IN) | payer MEDICARE ==
[2019-02-24] VITALS (10 sets, daily range): BP systolic 108–164; BP diastolic 54–96
[~2019-02-24] VITALS: Ht 162.6 cm; Wt 109.0 kg
[~2019-02-24 14:20] MED LIST changes: +ALBUTEROL SUL0.083 % IN; +BUMETANIDE1 MG PO; +LORTAB 5/3255 MG PO; +TRELEGY ELLIPTA1 AER IN
--- NOTE | 2019-02-24 14:21 | NUR ---
PATIENT TO ROOM VIA WHEELCHAIR. O2 IN PLACE AT 4L/MIN VIA NASAL CANNULA.
--- NOTE | 2019-02-24 14:22 | NUR ---
IMMEDIATELY TO BIPAP UPON ARRIVAL. PT IN TRIPOD POSITION USING ALL UPPEER EXTREMITY ACCESSORY MUSCLES. CONVERSATIONALLY DYSPNEIC USING 1-2 WORD SENTENCES. AUDIBLE WHEEZES NOTED.
--- NOTE | 2019-02-24 14:35 | NUR ---
PT PRESENTED TO ED PER W/C WITH WORSENING SOB AND FEVER FOR 24 HOURS, PT HAS BIPAP MACHINE IN ROOM, BUT DOESNT USE IT, IS ON OXYGEN AT NIGHT TIME ONLY. STARTED ON BIPAP WITH IMPROVEMENT IMMEDIATELY
[2019-02-24 15:11] LABS: HEMATOCRIT 36.7 % (37.0-47.0); HEMOGLOBIN 11.2 g/dl (12.0-16.0); IMMATURE GRANULOCYTES 0.5 % (0.0-5.0); MEAN CELL VOLUME 87.4 fL CALC (80.0-100.0); MEAN CORPUSCULAR HGB 26.7 pG CALC (26.0-32.0); MEAN CORPUSCULAR HGB CONC 30.5 g/L CALC (32.0-36.0); NEUT# 12.8 thou/uL (2.00-7.15); RED BLOOD COUNT 4.2 mill/uL (4.20-5.60); RED CELL DISTRI WIDTH 14.6 % (11.5-15.5)
[2019-02-24] MEDS ORDERED: LIPITOR20 M1 PO (15:13)
[2019-02-24] MEDS ORDERED: ALLERGY RELF10 M3 PO (15:14)
[2019-02-24] MEDS ORDERED: DOCUSATE CAL240 MG PO (15:16)
[2019-02-24] MEDS ORDERED: NOVOLOG100 UNIT/M SC (15:19)
--- NOTE | 2019-02-24 15:37 | NUR ---
PT RESTING QUIETLY ON STRETCHER, DAUGHTER AT BEDSIDE, STATES FEELS MUCH BETTER
[2019-02-24 15:48] LABS: BUN 21 mg/dL (8-23); BUN/CREATININE RATIO 21 (12-20 (CALC)); CHLORIDE 101 mmol/l (95-108); GFR 55 ML/MIN (>=60 (CALC)); GFR FOR AFR.AMER. > 60 ML/MIN (>=60 (CALC)); SODIUM 138 mmol/l (137-146)
[2019-02-24 15:50] LABS: ANION GAP 15 (6-22 (CALC)); CARBON DIOXIDE 27 mmol/l (22-30); POTASSIUM 5.3 mmol/l (3.5-5.1)
--- NOTE | 2019-02-24 16:12 | NUR ---
PT RESTING QUIETLY ON STRETCHER, BIPAP STILL ON. VANCOMYACIN INFUSING, IV SITE HEALTHY, VITAL SIGNS STABLE. SIDE RAILS UP AND CALL LIGHT WITHIN REACH.
--- NOTE | 2019-02-24 16:49 | NUR ---
DR. HOUSTON AT BEDSIDE.
--- NOTE | 2019-02-24 16:53 | NUR ---
REPORT CALLED TO ICU FOR CONTINUATION OF CARE
--- NOTE | 2019-02-24 17:16 | NUR ---
PT ADMITTED TOP ICU BED 5 VIA STRETCHER FROM Reggie. PT WAS AT [facility] AND HAS COMPLAINED OF SHORTNESS OF BREATH WORSENING FOR LAST 2 DAYS WITH LOW GRADE FEVERS WELL. MAX SLIDE ASSIST TRANSFER TO BED WITH 3 STAFF, STARLA CARE PROVIDED FOR INCONTINENCE OF SMALL AMOUNT OF STOOL, SKIN OTHERWISE INTACT WITH NO BREAKDOWN NOTED, BIPAP IN PLACE SEE FLOWSHEET FOR DETAILS/SETTINGS, PT HAS HOME CPAP BUT STATES SHE DOESN'T USE IT LIKE SHE IS SUPPOSED TO ALSO WEARS O2 AT NIGHT VIA NC. BP STABLE IV ACCESS NOTED IN RAC WITH VANCO INFUSING ORDERED, TELE READING SB/SR RATE IN 50-60'S, ORIENTED TO ROOM AND UNIT, COMFORT MEASURES INTRODUCED, ALL MONITORING EQUIPMENT EXPLAINED PRIOR TO APPLICATION, CALL LA WITHIN REACH, WILL CONTINUE TO MONITOR.
--- NOTE | 2019-02-24 17:30 | NUR ---
PT TAKEN TO ICU FOR CONTINUATION OF CARE
--- NOTE | 2019-02-24 18:20 | NUR ---
BI PAPA OFF AND SET UP ASSIST PROVIDED FOR PM MEAL, TAKES PO MEDICATIONS WITHOUT INCIDENT, CALL LA WITHIN REACH, TRUCK RAILROAD AND BUS MOTOR MECHANIC AT BEDSIDE FOR MEAL ASSIST, WILL CONTINUE TO MONITOR.
--- NOTE | 2019-02-24 18:37 | NUR ---
MANUFACTURING TECHNICIAN ASSITED WITH FEEDING DINNER AFTER PT SPILLED FOOD. PT REMOVED FROM FROM BIPAP FOR FOOD. PT APPEARS VERY HUNGRY. PT ON 4L NC.
--- NOTE | 2019-02-24 19:00 | NUR ---
CARE ASSUMED FROM AM NURSE. PATIENT RESTING IN ROOM. NO SIGNS OF DISTRESS. WILL CONTINUE TO MONITOR.
--- NOTE | 2019-02-24 20:00 | NUR ---
PATIENT RESTING IN BED. LINENS CHANGED. PATIENT INCONTINENT OF URINE. VITALS STABLE. PATIENT WITH OXYGEN NASAL CANNULA AT 4L. PATIENT WITH NO SIGNS OF DISTRESS. PATIENT IS ALERT AND ORIENTED X3. SKIN INTACT. TEMPERATURE RECHECKED- 99.6F. CALL LIGHT WITHIN REACH. BED ALARM ON. WILL CONTINUE TO MONITOR.
--- NOTE | 2019-02-24 21:34 | NUR ---
PT NO WEARING BIPAP @ THIS TIME. PT IN NO DISTRESS @ THIS TIME. PT IS WEARING 4L NC.
--- NOTE | 2019-02-24 22:00 | NUR ---
PATIENT RESTING IN BED WITH BIPAP ON. PATIENT'S VITALS STABLE. PATIENT IN NO DISTRESS. ISRAEL IN PLACE. GOOD OUTPUT. PATIENT SELF REPOSITIONED. WILL CONTINUE TO MONITOR.
[2019-02-24 22:08] LABS: URINE BILIRUBIN - DIPSTICK NEGATIVE (NEGATIVE); URINE BLOOD DIPSTICK NEGATIVE (NEGATIVE); URINE COLOR YELLOW; URINE GLUCOSE - DIPSTICK NEGATIVE (NEGATIVE); URINE KETONE NEGATIVE (NEGATIVE); URINE LEUK ESTERASE NEGATIVE (NEGATIVE); URINE PROTEIN - DIPSTICK NEGATIVE (NEG-TRACE); URINE UROBILINOGEN - DIPSTICK 0.2 E.U./dL (0.2)
[2019-02-24 22:15] LABS: URINE NITRITE - DIPSTICK POSITIVE (Negative)
[2019-02-24 22:16] LABS: URINE BACTERIA FEW hpf; URINE SQUAMOUS EPITHELIAL CELL FEW EPI/hpf (0-FEW)
[2019-02-25] VITALS (23 sets, daily range): BP systolic 88–138; BP diastolic 31–64
--- NOTE | 2019-02-25 | NUR ---
PATIENT VERY RESTLESS. CONTINUES TO TAKE BIPAP MASK OFF. PATIENT MEDICATED. NO COMPLAINTS OF PAIN OR DISCOMFORT. VITALS STABLE. NO SIGNS OF DISTRESS. PATIENT WITH GOOD URINE OUTPUT- ISRAEL. PATIENT OXYGEN SATURATION AT 100% WITH BIPAP. NO TEMPERATURE. WILL CONTINUE TO MONITOR PATIENT.
--- NOTE | 2019-02-25 02:31 | NUR ---
PATIENT SLEEPING. BIPAP IN PLACE. O2 SATURATIONS @ 98%. VITALS STABLE. NO SIGNS OF DISTRESS. NO COMPLAINTS OF PAIN OR DISCOMFORT. WILL CONTINUE TO MONITOR PATIENT. ISRAEL WITH GOOD OUTPUT.
--- NOTE | 2019-02-25 04:37 | NUR ---
PATIENT SLEEPING. WITH NO SIGNS OF DISTRESS. NO COMPLAINTS OF PAIN OR DISCOMFORT. PATIENT REMAINS WITH BIPAP ON. 100% O2. PATIENT SELF REPOSITIONED. ISRAEL WITH GOOD OUTPUT. VITALS STABLE. FALL PRECAUTIONS IN PLACE. WILL CONTINUE TO MONITOR.
[2019-02-25 05:27] LABS: HEMATOCRIT 36.9 % (37.0-47.0); HEMOGLOBIN 11.2 g/dl (12.0-16.0); IMMATURE GRANULOCYTES 0.8 % (0.0-5.0); MEAN CELL VOLUME 87.2 fL CALC (80.0-100.0); MEAN CORPUSCULAR HGB 26.5 pG CALC (26.0-32.0); MEAN CORPUSCULAR HGB CONC 30.4 g/L CALC (32.0-36.0); NEUT# 10.93 thou/uL (2.00-7.15); RED BLOOD COUNT 4.23 mill/uL (4.20-5.60); RED CELL DISTRI WIDTH 14.3 % (11.5-15.5)
[2019-02-25 05:35] LABS: ALBUMIN 3.3 g/dL (3.2-5.0); ALKALINE PHOSPHATASE 93 u/l (38-126); BILIRUBIN, TOTAL 0.4 mg/dL (0.0-1.4); BUN 26 mg/dL (8-23); BUN/CREATININE RATIO 25 (12-20 (CALC)); CARBON DIOXIDE 28 mmol/l (22-30); CHLORIDE 101 mmol/l (95-108); GFR 55 ML/MIN (>=60 (CALC)); GFR FOR AFR.AMER. > 60 ML/MIN (>=60 (CALC)); LIPASE 33 u/l (23-300); MAGNESIUM 2.1 mg/dL (1.6-2.3); SGOT/AST 14 u/l (9-36); SODIUM 138 mmol/l (137-146); TOTAL PROTEIN 5.6 g/dL (6.3-8.2)
--- NOTE | 2019-02-25 06:06 | NUR ---
PATIENT RESTING WITH BIPAP MASK IN PLACE. PATIENT IN NO SIGNS OF DISTRESS. PATIENTS VITAL SIGNS STABLE. PATIENT DID MAINTAIN BIPAP ON THROUHGOUT NIGHT. ISRAEL WITH GOOD OUTPUT. NO ATTEMPT TO GET OUT OF BED. BED ALARM ON. NO FEVERS THROUGHOUT NIGHT. WILL CONTINUE TO MONITOR PATIENT.
[2019-02-25 06:10] LABS: ANION GAP 14 (6-22 (CALC)); POTASSIUM 5.3 mmol/l (3.5-5.1)
[2019-02-25 06:11] LABS: AMYLASE < 30 u/l (30-110)
--- NOTE | 2019-02-25 07:25 | NUR ---
PT SLEEPING WITH BI PAP IN PLACE AND TOLERATING W/O INCIDENT, SEE FLOWSHEET FOR SETTINGS, LUNGS DIMINSHED WITH NO SOB OR DISTRESS NOTED AT REST, SKIN INTACT WITH NO BREAKDOWN NOTED, VS STABLE AFEBRILE, IV ACCESS NOTED IN RAC SALINE LOCKED WITH INTERMITTENT ABT THERAPY, TELE READING SB/SR RATE IN 50-60'S, ORIENTED TO ROOM AND UNIT, COMFORT MEASURES PROVIDED, CALL LA WITHIN REACH, WILL CONTINUE TO MONITOR.
--- NOTE | 2019-02-25 08:15 | NUR ---
BI PAP OFF FOR AM MEAL AND PLACED ON NC 4L SET UP ASSIST PROVIDED CALL LA WITHIN REACH, WILL CONTINUE TO MONITOR
--- NOTE | 2019-02-25 09:47 | NUR ---
R.T. AT BEDSIDE FOR NEB TREATMENT, PT TOLERATES WELL.
--- NOTE | 2019-02-25 10:12 | NUR ---
PT COMPLAINS OF ANXIWETY AND SHORTNESS OF BREATH REQUESTING BI PAP BACK ON, PLACED ON PT W/O INCIDENT, WILL CONTINUE TO MONITOR.
--- NOTE | 2019-02-25 11:25 | NUR ---
PT AROUSES TO VERBAL STIUMLI, ASXKED ABOUTAFTERNOON MEAL, STATES SHE IS NOT VERY HUNGRY AND WISHES TO JUST SLEEP, BI PAP PLACED BACK ON PT FOR REST.
--- NOTE | 2019-02-25 11:40 | NUR ---
PT REFUSED LUNCH AT THIS TIME, IS ON BIPAP PER REQUEST AFTER PT STATED SHE WAS HAVING A HARD TIME BREATHING. PT VERY ANXIOUS. LUNCH TRAY KEPT AT BEDSIDE FOR CONSUMPTION LATER. PT MEDICATED FOR ACCUCHECK OF 400 & IV ABX & BUMEX. EDUCATED PT ON SAME. PT APPEARS RELAXED AT THIS TIME, EYES CLOSED. CALLBELL W/IN REACH.
--- NOTE | 2019-02-25 12:16 | NUR ---
PT TOLERATING BI PAP W/O INCIDENT, OCCASIONALLY TALKS IN SLEEP, CALL LA WITHIN REACH WILL CONTINUE TO MONITOR.
--- NOTE | 2019-02-25 13:19 | NUR ---
PT ANXIOUS TROUBLE TOLERATING MASK AND WANTS TO HAVE IT OFF LATER WHILE DAUGHTERS ARE HERE TO VISIT, MEDICATED FOR ANXIETY AND R.T. AT BEDSIDE FOR MASK FIT, REMAINS ON BIPAP AND WILL CONTINUE TO MONITOR.
--- NOTE | 2019-02-25 13:21 | NUR ---
CHAMNGED PT TO A SIZE SMALL MASK. PT TOLLERATING WELL.
--- NOTE | 2019-02-25 13:59 | NUR ---
2 VISITORS @BEDSIDE. PT ASKED TO BE OFF BIPAP. ON 4L NC.
--- NOTE | 2019-02-25 14:19 | NUR ---
PT TAKES PO MEDICATION WELL , CONTINUES TO TOLERATE BEING OFF BI PAP, WILL CONTINUE TO MONITOR
--- NOTE | 2019-02-25 15:05 | NUR ---
PT CONTINEUS VISISTING WITH FAMILY MEMBERS, NO S/S OF DISTRESS NOTED, ABD SOFT DISTENDED, REPOSITIONS SELF FOR COMFORT, ASSIST PROVIDED PRN, WILL CONTINUE TO MONITOR
--- NOTE | 2019-02-25 15:31 | NUR ---
VISITORS LEAVING AT THIS TIME, CALL LA WITHIN REACH, WILL CONTINUE TO MONITOR.
--- NOTE | 2019-02-25 16:00 | NUR ---
LUNCH HEATED UP UP FOR CONSUMPTIONPER PT REQUEST, DAUGHTER REMAINS AT BEDSIDE, CALL ABHINAV BREWER, NO S/S OF DISTRESS OR DISCOMFORT NOTED
--- NOTE | 2019-02-25 17:12 | NUR ---
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
--- NOTE | 2019-02-25 18:15 | NUR ---
IV ABT COMPLETED PT TOLERATED WELL, REMAINS ON BIPAP, CALL LA WITHIN REACH, WILL CONTINUE TO MONITOR.
--- NOTE | 2019-02-25 19:00 | NUR ---
RECEIVED REPORT FROM AM NURSE. PATIENT RESTING IN BED WITH BIPAP ON. PATIENT APPEARS TO BE IN NO DISTRESS. WILL CONTINUE TO MONITOR. WILL ASSUME CARE.
--- NOTE | 2019-02-25 20:00 | NUR ---
PATIENT RESTING IN BED. BIPAP ON. PATIENTS VITALS STABLE. PATIENT WITH NO COMPLAINTS OF PAIN OR DISTRESS. PATIENT WITH NO REQUEST. REFUSED TURN- STATES SHES COMFORTABLE. WILL CONTINUE TO MONITOR PATIENT.
--- NOTE | 2019-02-25 22:00 | NUR ---
PATIENT RESTING IN BED. PATIENT REQUESTING PM SNACK. BIPAP OFF. PATIENT ON NC 4L. TOLERATING WELL. BS CHECKED. VITALS STABLE. PATIENT IN NO DISTRESS. PATIENT WITH NO COMPLAINTS OF PAIN OR DISCOMFORT. WILL CONTINUE TO MONITOR.
--- NOTE | 2019-02-25 23:00 | NUR ---
PATIENT REQUESTING TO BE PLACED ON BIPAP. PATIENT STATES SHE IS READY FOR BED. BIPAP PLACED. VITALS STABLE. PT WITH NO COMPLAINTS OF PAIN OR DISCOMFORT. WILL CONTINUE TO MONITOR.
[2019-02-26] VITALS (15 sets, daily range): BP systolic 95–137; BP diastolic 41–66
--- NOTE | 2019-02-26 | NUR ---
PATIENT SLEEPING. BIPAP ON. PATIENT IN NO SIGNS OF PAIN OR DISCOMFORT. VITALS STABLE. PATIENT SELF REPOSITIONED. WILL CONTINUE TO MONITOR PATIENT. CALL LIGHT WITH REACH.
--- NOTE | 2019-02-26 02:00 | NUR ---
PATIENT RESTING WELL. PATIENT IN NO DISTRESS. TOLERATING BIPAP WELL. VITALS STABLE. CALL LIGHT WITHIN REACH. WILL CONTINUE TO MONITOR PATIENT.
--- NOTE | 2019-02-26 04:00 | NUR ---
PATIENT RESTING WELL WITH BIPAP ON. TOLERATING WELL. NO SIGNS OF PAIN OR DISCOMFORT. VITALS STABLE. WILL CONTINUE TO MONITOR.
[2019-02-26 05:34] LABS: HEMATOCRIT 34.1 % (37.0-47.0); HEMOGLOBIN 10.7 g/dl (12.0-16.0); IMMATURE GRANULOCYTES 0.9 % (0.0-5.0); MEAN CELL VOLUME 86.8 fL CALC (80.0-100.0); MEAN CORPUSCULAR HGB 27.2 pG CALC (26.0-32.0); MEAN CORPUSCULAR HGB CONC 31.4 g/L CALC (32.0-36.0); NEUT# 18.28 thou/uL (2.00-7.15); RED BLOOD COUNT 3.93 mill/uL (4.20-5.60); RED CELL DISTRI WIDTH 14.6 % (11.5-15.5)
--- NOTE | 2019-02-26 06:00 | NUR ---
PATIENT KEPT BIPAP ON FOR MOST OF THE NIGHT. PATIENT TOLERATED WELL. PATIENT SWITCHED OVER TO NASAL CANNULA 4L. TOLERATING WELL. VITAL SIGNS STABLE. NO SIGNS OF DISTRESS. BED BATH GIVEN. PATIENT REPOSITIONED. NEW IV PLACE- OLD IV LEAKING. CALL LIGHT WITHIN REACH. WILL CONTINUE TO [id number].
[2019-02-26 06:12] LABS: ALBUMIN 3.2 g/dL (3.2-5.0); BILIRUBIN, TOTAL 0.2 mg/dL (0.0-1.4); CREATININE 1.3 mg/dL (0.5-1.0); MAGNESIUM 2.3 mg/dL (1.6-2.3); TOTAL PROTEIN 5.5 g/dL (6.3-8.2)
[2019-02-26 06:18] LABS: POTASSIUM 5.3 mmol/l (3.5-5.1)
--- NOTE | 2019-02-26 08:11 | NUR ---
PT IS SEEN AWAKE, ALERT, ORIENTED THIS MORNING. LUNGS ARE CLEAR, PT USING NC AT 4 LPM, SATS HIGH 90s. NO EDEMA NOTED. BREAKFAST 25%. ACCUCHECK 243, GIVEN 4 UNITS COVERAGE. CALL LA NEARBY, PT ADVISED TO CALL FOR NEEDS.
--- NOTE | 2019-02-26 09:06 | NUR ---
PT ON 4LNC SPO2 07%. PT IS SLEEPING AT THIS TIME. TX WILL BE GIVEN WHEN PT IS AWAKE. RN ARABELLA AWARE. PT IS IN NO DISTRESS AT THIS TIME
--- NOTE | 2019-02-26 13:46 | NUR ---
PT OOB IN CHAIR AT THIS TIME. DR HOUSTON PLEASE WITH PROGRESS, MAY RETURN HER TO REHAB TOMORROW IF ALL GOES WELL. PT DENIES PAIN, SOB.
--- NOTE | 2019-02-26 14:48 | NUR ---
PT TAKEN TO MED/SURG WHERE SHE WAS SHOWERED. LINENS CHANGED. BACK IN BED UPON ARRIVAL BACK TO ROOM, READING MAGAZINES.
--- NOTE | 2019-02-26 16:03 | NUR ---
PT RESTS IN THE BED, NO DISTRESS, NO COMPLAINTS.
--- NOTE | 2019-02-26 18:11 | NUR ---
PT CONTINUES BEFORE, ALERT AND ORIENTED, GOOD CONVERSATIONALIST. DAUGHTER JANNET AT BEDSIDE NOW. MEAL 100%.
--- NOTE | 2019-02-26 19:00 | NUR ---
ELECTRIC POWER LINE REPAIRER @ BEDSIDE.
--- NOTE | 2019-02-26 19:15 | NUR ---
awakens easily. denies resp diff. o2 cont per nc. breaker boss shows sinus rhythm 1st degree avb ivcd. #20 lt wrist saline lock. po fluids taken well. burger cath in place. urine pink tinged. fall precautions cont.
--- NOTE | 2019-02-26 21:00 | NUR ---
awakens easily. xanax 0.25mg po given. rt notified of need for bipap.
--- NOTE | 2019-02-26 22:00 | NUR ---
eyes closed. no distress. bipap cont.
[2019-02-27] VITALS (23 sets, daily range): BP systolic 97–159; BP diastolic 48–85
--- NOTE | 2019-02-27 00:01 | NUR ---
eyes closed. no distress. bus monitor shows sinus rhythm 1st degree avb ivcd.
--- NOTE | 2019-02-27 02:00 | NUR ---
resting quietly. resps even & unlabored. bipap cont.
--- NOTE | 2019-02-27 03:30 | NUR ---
awake. sitting on side of bed. admits "need to go to room 5." instructed pt she was in room 5. assisted back into bed.
--- NOTE | 2019-02-27 04:00 | NUR ---
eyes closed. no distress.
--- NOTE | 2019-02-27 06:00 | NUR ---
eyes closed. no distress. bipap cont.
--- NOTE | 2019-02-27 07:15 | NUR ---
PT SLEEPING WITH BI PAP IN PLACE AND TOLERATING W/O INCIDENT, SEE FLOWSHEET FOR SETTINGS, LUNGS DIMINSHED WITH NO SOB OR DISTRESS NOTED AT REST, SKIN INTACT WITH NO BREAKDOWN NOTED, VS STABLE AFEBRILE, IV ACCESS NOTED IN L WRIST SALINE LOCKED WITH INTERMITTENT ABT THERAPY, TELE READING SR RATE IN 60'S, SAFETY MEASURES REINFORCED, COMFORT MEASURES PROVIDED, CALL LA WITHIN REACH, WILL CONTINUE TO MONITOR.
--- NOTE | 2019-02-27 07:35 | NUR ---
BI PAP OFF AT THIS TME AND O2 PLACED AT 4L VIA NC, MOD ASSIST TO SITTING UP ON EDGE OF BED FOR AM MEAL, SET UP ASSISRT PROVIDED FOR BREAKFAST, CALL LA WITHIN REACH, WILL CONTINUE TO MONITOR.
--- NOTE | 2019-02-27 09:46 | NUR ---
PT DOZING IN BED, OFFERS NO COMPLAINTS, WITH NO S/S ODF DISTRESS OR SHORTNESS OF BREATH, O2 REMAINS ON VIA NC, WILL CONTINUE TO MONITOR.
--- NOTE | 2019-02-27 10:33 | NUR ---
PT CONTINUES DOZING INTERMITTENLY, REMAINS ON NC 4L, CALL LA WITHIN REACH.
--- NOTE | 2019-02-27 10:56 | NUR ---
AMBROSIO Hamm TBEDSIDE FOR ACCU CHECK, WILL PROVIDE COVERAGE ORDERED.
[2019-02-27 11:19] LABS: HEMATOCRIT 34.7 % (37.0-47.0); HEMOGLOBIN 10.7 g/dl (12.0-16.0); IMMATURE GRANULOCYTES 0.8 % (0.0-5.0); MEAN CELL VOLUME 87.4 fL CALC (80.0-100.0); MEAN CORPUSCULAR HGB CONC 30.8 g/L CALC (32.0-36.0); NEUT# 14.82 thou/uL (2.00-7.15); RED BLOOD COUNT 3.97 mill/uL (4.20-5.60); RED CELL DISTRI WIDTH 14.3 % (11.5-15.5)
--- NOTE | 2019-02-27 11:35 | NUR ---
INTO SEE PATIENT, PLAN OF CARE DISCUSSED INCLUDING POSSIBLE D/C BACK TO REHAB TOMORROW, CALL LA WITHIN REACH, WILL CONTINUE TO MONITOR.
[2019-02-27 11:40] LABS: ANION GAP 16 (6-22 (CALC)); BUN 44 mg/dL (8-23); BUN/CREATININE RATIO 42 (12-20 (CALC)); CARBON DIOXIDE 26 mmol/l (22-30); CHLORIDE 100 mmol/l (95-108); GFR 55 ML/MIN (>=60 (CALC)); GFR FOR AFR.AMER. > 60 ML/MIN (>=60 (CALC)); POTASSIUM 5.1 mmol/l (3.5-5.1); SODIUM 137 mmol/l (137-146)
--- NOTE | 2019-02-27 11:49 | NUR ---
PT MEDICATED BUBBA FOR COMPLAINT OF HEADACHE AND BACK DISCOMFORT WITH GOOD RELIEF, CALL LA WITHIN REACH, AM BUMEX GIVEN NOW PER VERBAL ORDERED (WERE WAITING FOR LAB RESULTS PRIOR TO ADMINISTRATION)
--- NOTE | 2019-02-27 13:18 | NUR ---
PT RESTING I BED, OFFERS NO NE WCOMPLAINTS, TOELRATE ABT WELL, CALL LA WITHIN REACH.
--- NOTE | 2019-02-27 13:42 | NUR ---
SISTER AT BEDSIDE TO VISIT, CALL LA WITHIN REACH
--- NOTE | 2019-02-27 14:40 | NUR ---
PT MEDICATED FOR COMPLAINTS OF HEADAHCE AND ANXIETY, TAKES PO MEDICATION WELL, COMFORT MEASURES REINFORCED, SAFETY MEASURES REINFORCED, CALL LA WITHIN REACH
--- NOTE | 2019-02-27 15:20 | NUR ---
VISITOR AT BEDSIDE, NO COMPLAINTS OFFERED, CALL LA WITHIN REACH
--- NOTE | 2019-02-27 16:15 | NUR ---
PT DOZES INTERMITTENLY, OFFERS NO NEW COMPLAINTS, CALL LA WITHIN REACH
--- NOTE | 2019-02-27 17:33 | NUR ---
PT OOB TO BSC WITH CIGARETTE FILTER INSPECTOR ASSIST, CONTINENT OF LARGE SOFT BM AND STARLA CARE ASSIST PROVIDED, BACK TO SITIING ON EDGE OF BED FOR PM MEAL, SET UP ASSIST PROVIDED FOR MEAL, CALL LA WITHIN REACH
--- NOTE | 2019-02-27 18:20 | NUR ---
PT TOELRATED PM MEAL WELL, REMAINS SITTING UP ON EDGE OF BED, CALL LA WITHIN REACH, WILL CONTINUE TO MONITOR.
--- NOTE | 2019-02-27 19:10 | NUR ---
sitting on side of bed. assisted into bed as requested. no resp distress. o2 cont per nc. athletic monitor shows sinus rhythm 1st degree avb ivcd. #22 lt wrist saline lock. po fluids taken well. burger cath in place. urine cloudy pink. fall precautions cont.
--- NOTE | 2019-02-27 21:00 | NUR ---
xanax 0.25mg po given per request for sleep.
--- NOTE | 2019-02-27 22:00 | NUR ---
eyes closed. bipap cont. quality assurance monitor body shows sinus lyle 1st degree avb ivcd.
[2019-02-28] VITALS (16 sets, daily range): BP systolic 95–170; BP diastolic 47–75
--- NOTE | 2019-02-28 00:01 | NUR ---
eyes closed. no distress. bipap cont. burger draining well.
--- NOTE | 2019-02-28 02:00 | NUR ---
resting quietly. resps even & unlabored. no apparent distress.
--- NOTE | 2019-02-28 04:00 | NUR ---
eyes closed. no distress. color television console monitor shows sinus rhythm 1st degree avb ivcd.
--- NOTE | 2019-02-28 05:00 | NUR ---
lab here. blood drawn.
[2019-02-28 05:41] LABS: HEMATOCRIT 36.6 % (37.0-47.0); HEMOGLOBIN 11.2 g/dl (12.0-16.0); IMMATURE GRANULOCYTES 1.1 % (0.0-5.0); MEAN CELL VOLUME 86.7 fL CALC (80.0-100.0); MEAN CORPUSCULAR HGB 26.5 pG CALC (26.0-32.0); MEAN CORPUSCULAR HGB CONC 30.6 g/L CALC (32.0-36.0); NEUT# 12.22 thou/uL (2.00-7.15); RED BLOOD COUNT 4.22 mill/uL (4.20-5.60); RED CELL DISTRI WIDTH 14.1 % (11.5-15.5)
[2019-02-28 05:50] LABS: ALBUMIN 3.2 g/dL (3.2-5.0); ALKALINE PHOSPHATASE 81 u/l (38-126); ANION GAP 13 (6-22 (CALC)); BILIRUBIN, TOTAL 0.3 mg/dL (0.0-1.4); BUN 41 mg/dL (8-23); BUN/CREATININE RATIO 42 (12-20 (CALC)); CARBON DIOXIDE 28 mmol/l (22-30); CHLORIDE 100 mmol/l (95-108); GFR 55 ML/MIN (>=60 (CALC)); GFR FOR AFR.AMER. > 60 ML/MIN (>=60 (CALC)); MAGNESIUM 2.3 mg/dL (1.6-2.3); POTASSIUM 4.9 mmol/l (3.5-5.1); SGOT/AST 11 u/l (9-36); SODIUM 136 mmol/l (137-146); TOTAL PROTEIN 5.5 g/dL (6.3-8.2)
--- NOTE | 2019-02-28 06:00 | NUR ---
awakens easily. denies c/o. bipap cont.
--- NOTE | 2019-02-28 07:20 | NUR ---
PT SLEEPING WITH BI PAP IN PLACE AND TOLERATING W/O INCIDENT, SEE FLOWSHEET FOR SETTINGS, BI PAP OFF AT THIS TIME AND ASSIST TO SITTING UP ON EDGE OF ED FOR AM MEAL PLACED ON NC 4L, LUNGS DIMINSHED WITH NO SOB OR DISTRESS NOTED AT REST, SKIN INTACT WITH NO BREAKDOWN NOTED, VS STABLE AFEBRILE, IV ACCESS NOTED IN L WRIST SALINE LOCKED WITH INTERMITTENT ABT THERAPY, TELE READING SB RATE IN 40-50'S, SAFETY MEASURES REINFORCED, COMFORT MEASURES PROVIDED, CALL LA WITHIN REACH, WILL CONTINUE TO MONITOR.
--- NOTE | 2019-02-28 07:30 | NUR ---
SET UP ASSIST PROVIDED FOR AM MEAL
--- NOTE | 2019-02-28 07:49 | NUR ---
TOLERATED AM MEAL WITH GOOD INTAKE, BACK LAYING DOWN AT THIS TIME, CALL LA WITHIN REACH, WILL CONTINUE TO MONITOR.
--- NOTE | 2019-02-28 08:43 | NUR ---
PT RESTING IN BED WITH EYES CLOSED, OFFERS NO COMPLAINTS, CALL LA WITHIN REACH
--- NOTE | 2019-02-28 09:40 | NUR ---
TAKES AM MEDICATIONS WITHOUT INCIDENT, AM LEVEMIR GIVEN ORDERED, CALL LA WITHIN REACH
--- NOTE | 2019-02-28 10:15 | NUR ---
in to see patient plan of care discussed inclduing d/c back to rehab, Godinez cathter removed intact, pt aware of need to void priot ot release, and verbalizes understanding.
[2019-02-28] MEDS ORDERED: DOXYCYCL HYC100 MG PO (10:25)
--- NOTE | 2019-02-28 11:20 | NUR ---
ACCU CHECK COMPLETED AND COVERAGE GIVEN ORDERED, PT ASSIST TO SITTING UP ON EDGE OF BED FOR AFTERNOON MEAL, CALL LA WITHIN REACH, WILL CONTINUE TO MONITOR
[2019-02-28] MEDS ORDERED: ELIQUIS5 MG PO (11:22)
--- NOTE | 2019-02-28 11:27 | NUR ---
DAUGHTER POLINA AT BEDSIDE AWARE OF PLANNED TRANSFER BACK TO REHAB TODAY
[2019-02-28] MEDS ORDERED: ACETAMINOPHEN325 MG PO (11:31)
[2019-02-28] MEDS ORDERED: ALBUTEROL SUL0.083 % IN (11:33)
[2019-02-28] MEDS ORDERED: BUPROPION HCL300 MG PO (11:56)
[2019-02-28] MEDS ORDERED: ALL DAY ALLERGY10 MG PO (11:57)
[2019-02-28] MEDS ORDERED: COLACE100 MG PO (11:59)
[2019-02-28] MEDS ORDERED: LEVOTHYROXIN150 MC1 PO (12:02)
[2019-02-28] MEDS ORDERED: GUAIFENESIN/DEX1 SYP PO (12:02)
[2019-02-28] MEDS ORDERED: METOPROL TAR25 MG PO (12:03)
[2019-02-28] MEDS ORDERED: MILK OF MAGNESIA CON PO (12:12)
[2019-02-28] MEDS ORDERED: RAYOS5 MG PO (12:14)
[2019-02-28] MEDS ORDERED: PROTOPIC0.1 % EX (12:16)
[2019-02-28] MEDS ORDERED: [UNRECOGNIZED DRUG - OTHER] (12:18)
[2019-02-28] MEDS ORDERED: XANAX0.25 MG PO (12:19)
[2019-02-28] MEDS ORDERED: ZOFRAN4 M1 PO (12:20)
--- NOTE | 2019-02-28 15:21 | NUR ---
Discharge instructions given. Patient verbalizes understanding of same. Discharged in stable condition via Wheelchair to [facility] with staff. All belongings sent with pt. SCRIPT FOR ABT SENT WITH PATIENT.
== END 2019-02-28 15:21 | DRG 291 ==
LOC: ED 14:20 → ED-I 16:19 → ED 16:30 → ICU 16:31
PROVIDERS: Family Medicine; ADMIT Internal Medicine Nephrology; ATTEND Internal Medicine Nephrology
PROC: 5A09457 Assistance with Respiratory Ventilation, 24-96 Consecutive Hours, Continuous Positive Airway Pressure (ICD-10-PCS; principal; 2019-02-24)
PROC: 0T9B70Z Drainage of Bladder with Drainage Device, Via Natural or Artificial Opening (ICD-10-PCS; 2019-02-24)
DX: I13.0 Hypertensive heart and chronic kidney disease with heart failure and stage 1 through stage 4 chronic kidney disease, or unspecified chronic kidney disease (principal); I50.31 Acute diastolic (congestive) heart failure; J96.22 Acute and chronic respiratory failure with hypercapnia; J96.21 Acute and chronic respiratory failure with hypoxia; J44.1 Chronic obstructive pulmonary disease with (acute) exacerbation; L10.0 Pemphigus vulgaris; N17.9 Acute kidney failure, unspecified; Z68.42 Body mass index [BMI] 45.0-49.9, adult; J44.0 Chronic obstructive pulmonary disease with (acute) lower respiratory infection; J20.9 Acute bronchitis, unspecified; E11.22 Type 2 diabetes mellitus with diabetic chronic kidney disease; N18.3 Chronic kidney disease, stage 3 (moderate); I48.0 Paroxysmal atrial fibrillation; F41.1 Generalized anxiety disorder; E66.01 Morbid (severe) obesity due to excess calories; G47.33 Obstructive sleep apnea (adult) (pediatric); N20.0 Calculus of kidney; E03.9 Hypothyroidism, unspecified; M19.90 Unspecified osteoarthritis, unspecified site; T50.2X5A Adverse effect of carbonic-anhydrase inhibitors, benzothiadiazides and other diuretics, initial encounter; Z79.01 Long term (current) use of anticoagulants; Z79.4 Long term (current) use of insulin; Z86.73 Personal history of transient ischemic attack (TIA), and cerebral infarction without residual deficits

== ENCOUNTER 2019-05-15 12:32 | Inpatient (IN) | payer MEDICARE ==
[~2019-05-15] VITALS: Ht 162.6 cm; Wt 120.0 kg
[2019-05-15] VITALS (9 sets, daily range): BP systolic 85–144; BP diastolic 41–81
[~2019-05-15 12:32] MED LIST changes: +ACETAMINOPHEN325 MG PO; +ALL DAY ALLERGY10 MG PO; +ALLERGY RELF10 M3 PO; +BUPROPION HCL300 MG PO; +COLACE100 MG PO; +DOCUSATE CAL240 MG PO; +ELIQUIS5 MG PO; +GUAIFENESIN/DEX1 SYP PO; +LEVOTHYROXIN150 MC1 PO; +LIPITOR20 M1 PO; +METOPROL TAR25 MG PO; +MILK OF MAGNESIA CON PO; +PROTOPIC0.1 % EX; +RAYOS5 MG PO; +XANAX0.25 MG PO; +ZOFRAN4 M1 PO; +[UNRECOGNIZED DRUG - OTHER] TOP
[2019-05-15] MEDS ORDERED: CORDARONE/200 MG/TAB PO (12:59)
[2019-05-15] MEDS ORDERED: ASPIRIN 8181 MG PO (13:00)
[2019-05-15] MEDS ORDERED: ATORVASTATIN CA20 MG PO (13:01)
[2019-05-15] MEDS ORDERED: BIOTIN1000 MCG PO (13:02)
[2019-05-15] MEDS ORDERED: LANTUS SOLOSTAR SC (13:07)
[2019-05-15] MEDS ORDERED: SYNTHROID175 MCG PO (13:07)
[2019-05-15] MEDS ORDERED: MONTELUKAST SOD10 MG PO (13:09)
[2019-05-15] MEDS ORDERED: PREDNISONE5 MG PO (13:10)
[2019-05-15] MEDS ORDERED: PANTOPRAZOLE SO40 M1 PO (13:10)
[2019-05-15] MEDS ORDERED: NEURONTIN300 MG PO (13:13)
[2019-05-15] MEDS ORDERED: ACETAMIN325 MG PO (13:15)
[2019-05-15] MEDS ORDERED: BENADRYL ALLERG25 MG PO (13:16)
[2019-05-15] MEDS ORDERED: MILK OF MAG30 ML/UDC PO (13:18)
[2019-05-15] MEDS ORDERED: ULTRAM50 M1 PO (13:22)
[2019-05-15 13:23] LABS: HEMATOCRIT 36.7 % (37.0-47.0); HEMOGLOBIN 11.2 g/dl (12.0-16.0); IMMATURE GRANULOCYTES 0.5 % (0.0-5.0); MEAN CELL VOLUME 84.4 fL CALC (80.0-100.0); MEAN CORPUSCULAR HGB 25.7 pG CALC (26.0-32.0); MEAN CORPUSCULAR HGB CONC 30.5 g/L CALC (32.0-36.0); NEUT# 8.02 thou/uL (2.00-7.15); RED BLOOD COUNT 4.35 mill/uL (4.20-5.60); RED CELL DISTRI WIDTH 14.6 % (11.5-15.5)
[2019-05-15] MEDS ORDERED: ONDANSETRON HCL4 MG PO (13:26)
[2019-05-15 13:48] LABS: ANION GAP 15 (6-22 (CALC)); BUN 21 mg/dL (8-23); BUN/CREATININE RATIO 19 (12-20 (CALC)); CARBON DIOXIDE 31 mmol/l (22-30); CHLORIDE 94 mmol/l (95-108); CREATININE 1.1 mg/dL (0.5-1.0); GFR 49 ML/MIN (>=60 (CALC)); GFR FOR AFR.AMER. 59 ML/MIN (>=60 (CALC)); SODIUM 135 mmol/l (137-146)
[2019-05-15 13:49] LABS: POTASSIUM 5.2 mmol/l (3.5-5.1)
[2019-05-16] VITALS (13 sets, daily range): BP systolic 99–136; BP diastolic 33–65
[2019-05-16 05:49] LABS: HEMOGLOBIN 11.2 g/dl (12.0-16.0); IMMATURE GRANULOCYTES 0.5 % (0.0-5.0); MEAN CELL VOLUME 84.9 fL CALC (80.0-100.0); MEAN CORPUSCULAR HGB 25.7 pG CALC (26.0-32.0); MEAN CORPUSCULAR HGB CONC 30.3 g/L CALC (32.0-36.0); NEUT# 8.54 thou/uL (2.00-7.15); RED BLOOD COUNT 4.36 mill/uL (4.20-5.60); RED CELL DISTRI WIDTH 14.4 % (11.5-15.5)
[2019-05-16 06:08] LABS: ALBUMIN 3.3 g/dL (3.2-5.0); ALKALINE PHOSPHATASE 89 u/l (38-126); BUN 28 mg/dL (8-23); BUN/CREATININE RATIO 29 (12-20 (CALC)); CARBON DIOXIDE 30 mmol/l (22-30); CHLORIDE 97 mmol/l (95-108); GFR 55 ML/MIN (>=60 (CALC)); GFR FOR AFR.AMER. > 60 ML/MIN (>=60 (CALC)); LIPASE 23 u/l (23-300); MAGNESIUM 2.2 mg/dL (1.6-2.3); SODIUM 137 mmol/l (137-146); TOTAL PROTEIN 5.8 g/dL (6.3-8.2)
[2019-05-16 06:31] LABS: ANION GAP 15 (6-22 (CALC)); BILIRUBIN, TOTAL 0.5 mg/dL (0.0-1.4); POTASSIUM 5.4 mmol/l (3.5-5.1); SGOT/AST 25 u/l (9-36)
[2019-05-16 06:32] LABS: AMYLASE < 30 u/l (30-110)
[2019-05-17] VITALS: BP 104/55
[2019-05-17 02:00] VITALS: BP 102/64
[2019-05-17 04:00] VITALS: BP 108/47
[2019-05-17 04:30] LABS: HEMATOCRIT 33.6 % (37.0-47.0); HEMOGLOBIN 10.3 g/dl (12.0-16.0); IMMATURE GRANULOCYTES 0.5 % (0.0-5.0); MEAN CELL VOLUME 85.1 fL CALC (80.0-100.0); MEAN CORPUSCULAR HGB 26.1 pG CALC (26.0-32.0); MEAN CORPUSCULAR HGB CONC 30.7 g/L CALC (32.0-36.0); NEUT# 5.75 thou/uL (2.00-7.15); RED BLOOD COUNT 3.95 mill/uL (4.20-5.60); RED CELL DISTRI WIDTH 14.6 % (11.5-15.5)
[2019-05-17 05:19] LABS: BILIRUBIN, TOTAL 0.5 mg/dL (0.0-1.4); CREATININE 1.4 mg/dL (0.5-1.0); MAGNESIUM 2.4 mg/dL (1.6-2.3); TOTAL PROTEIN 5.4 g/dL (6.3-8.2)
[2019-05-17 05:38] LABS: POTASSIUM 4.7 mmol/l (3.5-5.1)
[2019-05-17 06:09] VITALS: BP 158/84
[2019-05-17 09:33] VITALS: BP 136/72
== END 2019-05-17 12:50 | DRG 177 ==
LOC: ED 12:32 → ED-I 14:35 → ED 14:48 → ICU 14:49
PROVIDERS: Family Medicine; ADMIT Internal Medicine Nephrology; ATTEND Internal Medicine Nephrology
PROC: 5A09357 Assistance with Respiratory Ventilation, Less than 24 Consecutive Hours, Continuous Positive Airway Pressure (ICD-10-PCS; principal; 2019-05-15)
DX: J69.0 Pneumonitis due to inhalation of food and vomit (principal); J96.22 Acute and chronic respiratory failure with hypercapnia; J96.21 Acute and chronic respiratory failure with hypoxia; L10.0 Pemphigus vulgaris; Z68.42 Body mass index [BMI] 45.0-49.9, adult; J44.0 Chronic obstructive pulmonary disease with (acute) lower respiratory infection; N17.9 Acute kidney failure, unspecified; E87.3 Alkalosis; I13.0 Hypertensive heart and chronic kidney disease with heart failure and stage 1 through stage 4 chronic kidney disease, or unspecified chronic kidney disease; I50.32 Chronic diastolic (congestive) heart failure; J44.1 Chronic obstructive pulmonary disease with (acute) exacerbation; J18.9 Pneumonia, unspecified organism; E11.22 Type 2 diabetes mellitus with diabetic chronic kidney disease; N18.3 Chronic kidney disease, stage 3 (moderate); I25.10 Atherosclerotic heart disease of native coronary artery without angina pectoris; E03.9 Hypothyroidism, unspecified; E66.01 Morbid (severe) obesity due to excess calories; F41.8 Other specified anxiety disorders; K21.9 Gastro-esophageal reflux disease without esophagitis; G47.30 Sleep apnea, unspecified; Y95 Nosocomial condition; Z79.4 Long term (current) use of insulin; Z86.73 Personal history of transient ischemic attack (TIA), and cerebral infarction without residual deficits; Z95.1 Presence of aortocoronary bypass graft; Z99.81 Dependence on supplemental oxygen

== ENCOUNTER 2020-01-23 | Emergency (ER) | payer MEDICARE ==
[~2020-01-23] MED LIST changes: +ACETAMIN325 MG PO; +ASPIRIN 8181 MG PO; +ATORVASTATIN CA20 MG PO; +BENADRYL ALLERG25 MG PO; +BIOTIN1000 MCG PO; +CORDARONE/200 MG/TAB PO; +LANTUS SOLOSTAR SC; +MILK OF MAG30 ML/UDC PO; +MONTELUKAST SOD10 MG PO; +NEURONTIN300 MG PO; +PANTOPRAZOLE SO40 M1 PO; +PREDNISONE5 MG PO; +SYNTHROID175 MCG PO; +ULTRAM50 M1 PO
[2020-01-23 10:05] LABS: HEMATOCRIT 39.1 % (37.0-47.0); HEMOGLOBIN 12.1 g/dl (12.0-16.0); IMMATURE GRANULOCYTES 0.5 % (0.0-5.0); MEAN CELL VOLUME 84.8 fL CALC (80.0-100.0); MEAN CORPUSCULAR HGB 26.2 pG CALC (26.0-32.0); MEAN CORPUSCULAR HGB CONC 30.9 g/L CALC (32.0-36.0); NEUT# 5.56 thou/uL (2.00-7.15); RED BLOOD COUNT 4.61 mill/uL (4.20-5.60); RED CELL DISTRI WIDTH 13.9 % (11.5-15.5)
[2020-01-23 10:31] LABS: ALBUMIN 3.6 g/dL (3.2-5.0); ALKALINE PHOSPHATASE 105 u/l (38-126); AMYLASE 32 u/l (30-110); ANION GAP 8 (6-22 (CALC)); BILIRUBIN, TOTAL 0.4 mg/dL (0.0-1.4); BUN 12 mg/dL (8-23); BUN/CREATININE RATIO 12 (12-20 (CALC)); CARBON DIOXIDE 33 mmol/l (22-30); CHLORIDE 98 mmol/l (95-108); GFR 55 ML/MIN (>=60 (CALC)); GFR FOR AFR.AMER. > 60 ML/MIN (>=60 (CALC)); LIPASE 55 u/l (23-300); POTASSIUM 4.3 mmol/l (3.5-5.1); SGOT/AST 21 u/l (9-36); SODIUM 135 mmol/l (137-146); TOTAL PROTEIN 6.5 g/dL (6.3-8.2)
[2020-01-23 11:33] LABS: URINE BILIRUBIN - DIPSTICK NEGATIVE (NEGATIVE); URINE BLOOD DIPSTICK NEGATIVE (NEGATIVE); URINE COLOR YELLOW; URINE GLUCOSE - DIPSTICK NEGATIVE (NEGATIVE); URINE KETONE NEGATIVE (NEGATIVE); URINE LEUK ESTERASE NEGATIVE (NEGATIVE); URINE NITRITE - DIPSTICK NEGATIVE (Negative); URINE PH 6.5 (4.5-8.0); URINE PROTEIN - DIPSTICK NEGATIVE (NEG-TRACE); URINE SPECIFIC GRAVITY 1.015; URINE UROBILINOGEN - DIPSTICK 0.2 E.U./dL (0.2)
[2020-01-23] MEDS ORDERED: TORADOL PO (13:31)
== END 2020-01-23 13:45 ==
PROVIDERS: Family Medicine
DX: K59.00 Constipation, unspecified (principal); J44.9 Chronic obstructive pulmonary disease, unspecified; I11.0 Hypertensive heart disease with heart failure; I50.9 Heart failure, unspecified; E11.9 Type 2 diabetes mellitus without complications; Z86.73 Personal history of transient ischemic attack (TIA), and cerebral infarction without residual deficits; Z79.4 Long term (current) use of insulin
CPT/HCPCS: Q9967

== ENCOUNTER 2021-07-07 13:37 | Observation (INO) | payer MEDICARE, MEDICAID ==
[~2021-07-07] VITALS: Ht 162.6 cm; Wt 119.0 kg
[~2021-07-07 13:37] MED LIST changes: -ATORVASTATIN CA20 MG PO; +BUPROPION HCL150 MG PO; -BUPROPION HCL300 MG PO; +HUMALOG100 MG/ML SC; -LANTUS SOL100 UNIT/M SC; -LANTUS SOLOSTAR SC; +LEVEMIR FL100 UNIT/M SC; +ROSUVASTATIN CA20 MG PO; +TORADOL PO
--- NOTE | 2021-07-07 13:50 | NUR ---
TO ROOM FO RTRIAGE BY EMS
[2021-07-07 15:09] LABS: HEMATOCRIT 40.1 % (37.0-47.0); HEMOGLOBIN 12.8 g/dl (12.0-16.0); IMMATURE GRANULOCYTES 0.1 % (0.0-5.0); MEAN CELL VOLUME 87.4 fL CALC (80.0-100.0); MEAN CORPUSCULAR HGB 27.9 pG CALC (26.0-32.0); MEAN CORPUSCULAR HGB CONC 31.9 g/dL CAL (32.0-36.0); NEUT# 7.69 thou/uL (2.00-7.15); RED BLOOD COUNT 4.59 mill/uL (4.20-5.60); RED CELL DISTRI WIDTH 14.4 % (11.5-15.5)
[2021-07-07 15:19] LABS: ALBUMIN 3.7 g/dL (3.2-5.0); ALKALINE PHOSPHATASE 70 u/l (38-126); BUN 9 mg/dL (8-23); BUN/CREATININE RATIO 12 (12-20 (CALC)); CARBON DIOXIDE 32 mmol/l (22-30); CHLORIDE 98 mmol/l (95-108); CREATININE 0.8 mg/dL (0.5-1.0); GFR > 60 ML/MIN (>=60 (CALC)); GFR FOR AFR.AMER. > 60 ML/MIN (>=60 (CALC)); SGOT/AST 39 u/l (9-36); SODIUM 137 mmol/l (137-146)
[2021-07-07 15:21] LABS: ANION GAP 11 (6-22 (CALC)); POTASSIUM 3.9 mmol/l (3.5-5.1)
--- NOTE | 2021-07-07 15:27 | NUR ---
SITTING IN HIGH FOWLERS, SPO2 99% O2 AT 3L VIA NC. DENIES NEEDS AT THIS TIME.
[2021-07-07 15:31] LABS: MYOGLOBIN 73 ng/mL (0 - 62)
--- NOTE | 2021-07-07 15:35 | NUR ---
MD AT BEDSIDE TO DISCUSS RESULTS AND POC.
--- NOTE | 2021-07-07 15:40 | NUR ---
LABETOLOL IVP NOT GIVEN, BP 177/74. AWARE
--- NOTE | 2021-07-07 17:32 | NUR ---
RESTING QUIETLY WITHOUT C/O. DENIES NEEDS AT THIS TIME.
--- NOTE | 2021-07-07 19:18 | NUR ---
PT GOWN, BEDDING, AND BRIEF CHANGED. PT GIVEN BED BATH DUE TO URINE INCONTINENCE. RECIEVED REPORT FROM VICTORIA BOATENG, ASSUMED CARE OF PT.
[2021-07-07 20:21] LABS: URINE BILIRUBIN - DIPSTICK NEGATIVE (NEGATIVE); URINE BLOOD DIPSTICK NEGATIVE (NEGATIVE); URINE COLOR YELLOW; URINE GLUCOSE - DIPSTICK 100 mg/dL (NEGATIVE); URINE KETONE NEGATIVE (NEGATIVE); URINE LEUK ESTERASE NEGATIVE (NEGATIVE); URINE PROTEIN - DIPSTICK NEGATIVE (NEG-TRACE); URINE SPECIFIC GRAVITY 1.015; URINE UROBILINOGEN - DIPSTICK 0.2 E.U./dL (0.2)
[2021-07-07 20:23] LABS: URINE NITRITE - DIPSTICK NEGATIVE (Negative)
--- NOTE | 2021-07-07 21:06 | NUR ---
Admission Note Report Given to: NAYELI BOATENG Transported by: Wheelchair X Stretcher Transported with: X Nurse Transporter X Patent IV X O2 Business Administration Teacher Location: ICU X MS2
--- NOTE | 2021-07-07 21:14 | NUR ---
INSULIN 15UNIT BOLUS GIVEN PER DR. HSIEH
[2021-07-07 21:15] VITALS: BP 151/60
--- NOTE | 2021-07-07 22:30 | NUR ---
PT TRASNPORTED TO MED SURG VIA STRETCHER, ALL BELONGINGS SENT WITH PT AND TELE ON PT.
--- NOTE | 2021-07-07 22:30 | NUR ---
PATIENT ADMITTED FROM ER VIA STRETCHER WITH ER STAFF IN ATTENDANCE. PATIENT WITH O2 VIA NASAL CANNULA INPLACE. O2 SAT AT THIS TIME IS 95%. PATIENT IS MAX ASSIST TO TRANSFER INTO THE BED. PATIENT IS SOB WITH EXHERSION. PATIENT IS AWAKE ALERT AND ORIENTEDX3. ADMITTED WITH SOB, CHF. PATIENT STATES THAT SHE WEARS O2 MOST OF THE TIME. PUREWICK IN PLACE AND DRAINING CLEAR YELLOW URINE. SALINE LOCK TO RAC INTACT AND IS HEALTHY AT THIS TIME. TELE MONITOR APPLIED-INITIAL READING IN SR-67 PER ER MONITORING. LUNGS DIMINISHED THROUGHOUT. ABD IS SOFT WITH HYPOACTIVE BS. STATES THAT HER LAST BM WAS A COUPLE OF DAYS AGO. STATES THAT SHE THINKS THAT SHE MAY BE CONSTIPATED BUT DOESN'T WANT TO TAKE ANYTHING TONIGHT. ONLY SLIGHT SWELLING TO CHRISTINA FEET. PULSES ARE PALPABLE. ACCU-CHECK WAS 271-MEDICATED WITH LEVEMIR 20UNITS SQ ORDERED. MEDICATED WITH LASIX 40MG IVP ORDERED BY DR. GARZA. C/O NAUSEA AND MEDICATED WITH ZOFRAN 4MG IVP VIA [facility] SITE AND WITH TYLEN OL 650MG PO FOR HEADACHE. PATIENT ORIENTED TO ROOM AND SURROUNDINGS. INSTRUCTED ON USE OF NURSE CALL LIGHT SYSTEM, TV REMOTE AND PHONE. CELL PHONE AT BEDSIDE FOR PATIENT. SAFETY PRECAUTIONS REINFORCED. CALL LIGHT IN REACH. WILL CONT TO MONITOR.
[2021-07-08] VITALS: BP 138/52
--- NOTE | 2021-07-08 00:28 | NUR ---
PATIENT APPEARS SLEEPING AT THIS TIME WITH GOB ELEVATED AND EYES CLOSED. O2 VIA NASAL CANNULA IN PLACE AT 3LPM. TELE MONITOR IN PLACE. PUREWICK DRAINING YELLOW URINE. CALL LIGHT IN REACH. WILL CONT TO MONITOR.
[2021-07-08 04:00] VITALS: BP 147/60
[2021-07-08 05:58] LABS: ANION GAP 10 (6-22 (CALC)); BUN 9 mg/dL (8-23); BUN/CREATININE RATIO 11 (12-20 (CALC)); CARBON DIOXIDE 35 mmol/l (22-30); CHLORIDE 96 mmol/l (95-108); CREATININE 0.9 mg/dL (0.5-1.0); GFR > 60 ML/MIN (>=60 (CALC)); GFR FOR AFR.AMER. > 60 ML/MIN (>=60 (CALC)); POTASSIUM 3.2 mmol/l (3.5-5.1); SODIUM 138 mmol/l (137-146)
[2021-07-08 06:01] LABS: HEMATOCRIT 38.4 % (37.0-47.0); HEMOGLOBIN 12.1 g/dl (12.0-16.0); MEAN CELL VOLUME 89.3 fL CALC (80.0-100.0); MEAN CORPUSCULAR HGB 28.1 pG CALC (26.0-32.0); MEAN CORPUSCULAR HGB CONC 31.5 g/dL CAL (32.0-36.0); RED BLOOD COUNT 4.3 mill/uL (4.20-5.60); RED CELL DISTRI WIDTH 14.6 % (11.5-15.5)
--- NOTE | 2021-07-08 06:35 | NUR ---
PATIENT RESTING IN BED AT THIS TIME WITH EYES CLOSED. RESPS ARE EVEN AND UNLABORED. O2 VIA NASAL CANNULA IN PLACE. O2 SAT IS 95 ON 3LPM. TELE MONITOR IN PLACE.-LAST READING SR-69 1ST DEGREE AVB. PUREWICK IN PLACE DRAINING YELLOW URINE. HOB IS ELEVATED. CALL LIGHT IN REACH. WILL CONT TO MONITOR.
[2021-07-08 07:30] VITALS: BP 145/62
--- NOTE | 2021-07-08 07:30 | NUR ---
PATIENT RESTING IN BE WITH O2 ON AT 3L AND SPO2 IS 93% PATIENT DENIES ANY PAIN AT THIS TIME. PATIENT EXHIBITS BILATERAL EDEMA TO LOWER FEET. LUNGS ARE CLEAR SOUNDING AT THIS TIME. SIDERAILS ARE UP X2 CALL LIGHT WITHIN REACH. TELE MONITOR ON AND BEING MONITORED BY ED. FIELD CROPS HARVEST MACHINE OPERATOR DONE SEE INTERVENITONS. PATINET DENIES ANY NAUSEA AND OR VOMITTING AT THIS TIME.
[2021-07-08] MEDS ORDERED: CARVEDILOL3.125 MG PO (07:56)
[2021-07-08] MEDS ORDERED: CETIRIZINE10 MG PO (07:57)
[2021-07-08] MEDS ORDERED: CITALOPRAM20 M1 PO (08:03)
--- NOTE | 2021-07-08 11:51 | NUR ---
PATIENT RESTING IN BED AT THIS TIME DENIES ANY PAIN AND TELE MONITOR ON AND BEING WATCHED BY ED. 02 REMAINS ON AT 3 LITER SIDERAILS ARE UP X 2 CALL LIGHT WITHIN REACH
[2021-07-08 15:29] VITALS: BP 155/65
--- NOTE | 2021-07-08 15:37 | NUR ---
PATIENT RESTING AT THIS TIME. PATIENT STATES SHE HASN'T HAD MUCH SLEEP AND STATED THE FAN SEEMS TO BE HELPING HER AT THIS TIME. PATIENT DENIES ANY PAIN CURRENTLY. PURWICK IN PLACE CALL LIGHT WITHIN REACH SIDERAILS ARE UP X 2.
[2021-07-08 19:00] VITALS: BP 132/56
--- NOTE | 2021-07-08 19:20 | NUR ---
REPORT RECEIVED FROM Charan HOGAN RN.
--- NOTE | 2021-07-08 20:45 | NUR ---
PATIENT RESTING COMFORTABLY AT THIS TIME, ASSESMENT COMPLETED AT THIS TIME. BILATERAL EDEMA NOTED ON FEET. #22 ON THE R AC FLUSHED AND PATENT, HEALTHY IV SITE. HEART RATE WITHIN NORMAL LIMITS. EDEMA NOTED ON BILATERAL EXTREMITIES. PATIENT MEDICATED PER EMAR AT THIS TIME. CARE PLAN REVIEWED AT THIS TIME. ORIENTED TO CALL LIGHT AND ASKED TO CALL IF ASSITANCE IS NEEDED. CALL LIGTH AND BEDSIDE TABLE WITHIN REACH.
--- NOTE | 2021-07-09 00:45 | NUR ---
PATIENT AWAKE RESTING COMFORTABLY. DENIES ANY NEEDS AT THIS TIME. BEDSIDE TABLE AND CALL LIGHT WITHIN REACH.
[2021-07-09 04:00] VITALS: BP 117/61
--- NOTE | 2021-07-09 04:19 | NUR ---
PATIENT SLEEPING AT THSI TIME, IN NO APPARENT DISTRESS. CALL LIGHT AND BEDSIDE TABLE WITHIN REACH.
[2021-07-09 05:23] LABS: HEMATOCRIT 40.3 % (37.0-47.0); HEMOGLOBIN 12.3 g/dl (12.0-16.0); MEAN CORPUSCULAR HGB 27.8 pG CALC (26.0-32.0); MEAN CORPUSCULAR HGB CONC 30.5 g/dL CAL (32.0-36.0); RED BLOOD COUNT 4.43 mill/uL (4.20-5.60); RED CELL DISTRI WIDTH 14.6 % (11.5-15.5)
[2021-07-09 05:43] LABS: ANION GAP 9 (6-22 (CALC)); BUN 15 mg/dL (8-23); BUN/CREATININE RATIO 15 (12-20 (CALC)); CARBON DIOXIDE 38 mmol/l (22-30); CHLORIDE 94 mmol/l (95-108); GFR 55 ML/MIN (>=60 (CALC)); GFR FOR AFR.AMER. > 60 ML/MIN (>=60 (CALC)); SODIUM 137 mmol/l (137-146)
--- NOTE | 2021-07-09 08:30 | NUR ---
PT LYING IN BED ASLEEP. BEDSIDE REPORT RECEIVED. NO COMPLAINTS/D/D OF DISTRESS. PT REPORTED TO NOT HAVE HAD BM, MEDICATION REQUESTED FROM MD. WILL MONITOR.
[2021-07-09 08:43] VITALS: BP 147/73
[2021-07-09 10:49] VITALS: BP 128/53
--- NOTE | 2021-07-09 14:51 | NUR ---
Pt seen this pm for treatment. She was awake and pleasant. She moved supine to and from sit with bed rail. Sitting balance was good. 02 stats 96 decrease with sitting to 92 and increase with rest. Pt ambulated with RW x x 40 with supervision only, 02 stats decreased to 82-84% but with in several minutes back to mid 90's. Pt returned to supine and left with call bed, bedside table in place. non skid socks and gait belt used with mobility. [facility]
[2021-07-09 15:05] VITALS: BP 131/61
[2021-07-09] MEDS ORDERED: BUMETANIDE1 MG PO (15:55)
[2021-07-09] MEDS ORDERED: MEDDOSEPAK PO (16:06)
--- NOTE | 2021-07-09 17:34 | NUR ---
PT IV REMOVED, AWAITING RIDE FROM DAUGHTER SHORTLY
== END 2021-07-09 18:16 | disposition home health service (06) ==
LOC: ED 13:37 → MS2 18:10 → ED-I 18:10 → MS2 20:57
PROVIDERS: Emergency Medicine; Nurse Practitioner; ADMIT Hospitalist; ATTEND Hospitalist
DX: I11.0 Hypertensive heart disease with heart failure (principal); I50.9 Heart failure, unspecified; E11.22 Type 2 diabetes mellitus with diabetic chronic kidney disease; N18.30 Chronic kidney disease, stage 3 unspecified; J44.9 Chronic obstructive pulmonary disease, unspecified; I25.10 Atherosclerotic heart disease of native coronary artery without angina pectoris; F41.9 Anxiety disorder, unspecified; M19.90 Unspecified osteoarthritis, unspecified site; L10.0 Pemphigus vulgaris; R01.1 Cardiac murmur, unspecified; K21.9 Gastro-esophageal reflux disease without esophagitis; Z86.73 Personal history of transient ischemic attack (TIA), and cerebral infarction without residual deficits; Z79.4 Long term (current) use of insulin; Z95.1 Presence of aortocoronary bypass graft; Z99.81 Dependence on supplemental oxygen; Z20.822 Contact with and (suspected) exposure to COVID-19; E78.5 Hyperlipidemia, unspecified; F32.9 Major depressive disorder, single episode, unspecified
CPT/HCPCS: G0378

== ENCOUNTER 2022-12-31 07:34 | Observation (INO) | payer MEDICARE, MEDICAID ==
[2022-12-31] VITALS (28 sets, daily range): BP systolic 130–187; BP diastolic 46–154
[~2022-12-31] VITALS: Ht 162.6 cm; Wt 97.0 kg
[~2022-12-31 07:34] MED LIST changes: +CARVEDILOL3.125 MG PO; +CETIRIZINE10 MG PO; +CITALOPRAM20 M1 PO; -LOSARTAN POT25 MG PO; +LOSARTAN POTAS100 MG PO; +MEDDOSEPAK PO
[2022-12-31 07:55] LABS: BASO% 0.4 % (0-3); EOS% 2.9 % (0-8); HEMATOCRIT 41.1 % (37.0-47.0); HEMOGLOBIN 13.1 g/dl (12.0-16.0); IMMATURE GRANULOCYTES 0.2 % (0.0-5.0); LYMPH% 14.6 % (15-41); MEAN CELL VOLUME 82.9 fL CALC (80.0-100.0); MEAN CORPUSCULAR HGB 26.4 pG CALC (26.0-32.0); MEAN CORPUSCULAR HGB CONC 31.9 g/dL CAL (32.0-36.0); MONO% 8.6 % (2-13); NEUT# 8.42 thou/uL (2.00-7.15); NEUT% 73.3 % (42-76); RED BLOOD COUNT 4.96 mill/uL (4.20-5.60); RED CELL DISTRI WIDTH 14.3 % (11.5-15.5)
[2022-12-31 08:14] LABS: ALBUMIN 3.8 g/dL (3.2-5.0); ALKALINE PHOSPHATASE 112 u/l (38-126); ANION GAP 12 (6-22 (CALC)); BILIRUBIN, TOTAL 0.7 mg/dL (0.02-1.3); BUN 7 mg/dL (8-23); BUN/CREATININE RATIO 8 (12-20 (CALC)); CARBON DIOXIDE 26 mmol/l (22-30); CHLORIDE 102 mmol/l (95-108); CREATININE 0.8 mg/dL (0.5-1.0); GFR FOR AFR.AMER. > 60 ML/MIN (>=60 (CALC)); GFR OTHER RACES > 60 ML/MIN (>=60 (CALC)); LIPASE 52 u/l (23-300); POTASSIUM 2.9 mmol/l (3.5-5.1); SGOT/AST 19 u/l (9-36); SODIUM 137 mmol/l (137-146); TOTAL PROTEIN 6.7 g/dL (6.3-8.2)
[2022-12-31] MEDS ORDERED: OZEMPIC2 MG (11:44)
[2022-12-31] MEDS ORDERED: HYDROXYZINE HYD25 MG (11:46)
[2022-12-31] MEDS ORDERED: METOPROLOL SUCC50 MG PO (11:46)
[2022-12-31] MEDS ORDERED: MECLIZINE 2525 MG (11:47)
[2023-01-01 04:35] VITALS: BP 151/49
[2023-01-01 05:21] LABS: BASO% 0.1 % (0-3); HEMOGLOBIN 13.3 g/dl (12.0-16.0); IMMATURE GRANULOCYTES 0.3 % (0.0-5.0); LYMPH% 7.4 % (15-41); MEAN CORPUSCULAR HGB 26.9 pG CALC (26.0-32.0); MEAN CORPUSCULAR HGB CONC 32.4 g/dL CAL (32.0-36.0); MONO% 2.4 % (2-13); NEUT# 9.07 thou/uL (2.00-7.15); NEUT% 89.8 % (42-76); RED BLOOD COUNT 4.94 mill/uL (4.20-5.60); RED CELL DISTRI WIDTH 13.9 % (11.5-15.5)
[2023-01-01 05:49] LABS: BUN 17 mg/dL (8-23); BUN/CREATININE RATIO 22 (12-20 (CALC)); CARBON DIOXIDE 28 mmol/l (22-30); CHLORIDE 100 mmol/l (95-108); CREATININE 0.7 mg/dL (0.5-1.0); GFR FOR AFR.AMER. > 60 ML/MIN (>=60 (CALC)); GFR OTHER RACES > 60 ML/MIN (>=60 (CALC)); MAGNESIUM 1.9 mg/dL (1.6-2.3); SODIUM 135 mmol/l (137-146)
[2023-01-01 05:56] LABS: ANION GAP 11 (6-22 (CALC)); POTASSIUM 4.2 mmol/l (3.5-5.1)
[2023-01-01 06:51] VITALS: BP 165/54
[2023-01-01 10:01] VITALS: BP 131/40
[2023-01-01 15:38] VITALS: BP 131/40
[2023-01-01 19:17] VITALS: BP 150/59
[2023-01-01 20:22] LABS: URINE BILIRUBIN - DIPSTICK NEGATIVE (NEGATIVE); URINE BLOOD DIPSTICK NEGATIVE (NEGATIVE); URINE CLARITY CLEAR; URINE COLOR YELLOW; URINE GLUCOSE - DIPSTICK 500 mg/dL (NEGATIVE); URINE KETONE NEGATIVE (NEGATIVE); URINE LEUK ESTERASE TRACE (Negative); URINE NITRITE - DIPSTICK NEGATIVE (Negative); URINE PROTEIN - DIPSTICK NEGATIVE (NEG-TRACE); URINE UROBILINOGEN - DIPSTICK 0.2 E.U./dL (0.2)
[2023-01-01 23:39] VITALS: BP 132/50
[2023-01-02 04:32] VITALS: BP 148/64
[2023-01-02 05:49] LABS: BASO% 0.1 % (0-3); HEMATOCRIT 41.7 % (37.0-47.0); HEMOGLOBIN 13.2 g/dl (12.0-16.0); IMMATURE GRANULOCYTES 0.6 % (0.0-5.0); LYMPH% 5.6 % (15-41); MEAN CELL VOLUME 83.9 fL CALC (80.0-100.0); MEAN CORPUSCULAR HGB 26.6 pG CALC (26.0-32.0); MEAN CORPUSCULAR HGB CONC 31.7 g/dL CAL (32.0-36.0); MONO% 2.2 % (2-13); NEUT# 14.72 thou/uL (2.00-7.15); NEUT% 91.5 % (42-76); RED BLOOD COUNT 4.97 mill/uL (4.20-5.60); RED CELL DISTRI WIDTH 14.2 % (11.5-15.5)
[2023-01-02 06:14] LABS: ANION GAP 11 (6-22 (CALC)); BUN 27 mg/dL (8-23); BUN/CREATININE RATIO 30 (12-20 (CALC)); CARBON DIOXIDE 30 mmol/l (22-30); CHLORIDE 99 mmol/l (95-108); CREATININE 0.9 mg/dL (0.5-1.0); GFR FOR AFR.AMER. > 60 ML/MIN (>=60 (CALC)); GFR OTHER RACES > 60 ML/MIN (>=60 (CALC)); MAGNESIUM 1.8 mg/dL (1.6-2.3); POTASSIUM 3.8 mmol/l (3.5-5.1); SODIUM 135 mmol/l (137-146)
[2023-01-02 18:58] VITALS: BP 109/59
[2023-01-02 23:51] VITALS: BP 140/66
[2023-01-03 04:34] VITALS: BP 165/88
[2023-01-03 05:10] LABS: BASO% 0.1 % (0-3); HEMATOCRIT 44.1 % (37.0-47.0); HEMOGLOBIN 14.1 g/dl (12.0-16.0); IMMATURE GRANULOCYTES 0.6 % (0.0-5.0); LYMPH% 7.2 % (15-41); MEAN CELL VOLUME 83.7 fL CALC (80.0-100.0); MEAN CORPUSCULAR HGB 26.8 pG CALC (26.0-32.0); MONO% 5.4 % (2-13); NEUT# 12.47 thou/uL (2.00-7.15); NEUT% 86.7 % (42-76); RED BLOOD COUNT 5.27 mill/uL (4.20-5.60); RED CELL DISTRI WIDTH 14.2 % (11.5-15.5)
[2023-01-03 05:27] LABS: ANION GAP 9 (6-22 (CALC)); BUN 27 mg/dL (8-23); BUN/CREATININE RATIO 33 (12-20 (CALC)); CARBON DIOXIDE 33 mmol/l (22-30); CHLORIDE 98 mmol/l (95-108); CREATININE 0.8 mg/dL (0.5-1.0); GFR FOR AFR.AMER. > 60 ML/MIN (>=60 (CALC)); GFR OTHER RACES > 60 ML/MIN (>=60 (CALC)); MAGNESIUM 1.9 mg/dL (1.6-2.3); POTASSIUM 3.4 mmol/l (3.5-5.1); SODIUM 137 mmol/l (137-146)
[2023-01-03 06:30] VITALS: BP 147/70
[2023-01-03 10:52] VITALS: BP 136/49
[2023-01-03 14:30] VITALS: BP 128/67
[2023-01-03 18:56] VITALS: BP 123/58
[2023-01-03 23:47] VITALS: BP 146/67
[2023-01-04 04:15] VITALS: BP 155/70
[2023-01-04 05:50] LABS: HEMATOCRIT 44.9 % (37.0-47.0); HEMOGLOBIN 13.7 g/dl (12.0-16.0); MEAN CELL VOLUME 84.9 fL CALC (80.0-100.0); MEAN CORPUSCULAR HGB 25.9 pG CALC (26.0-32.0); MEAN CORPUSCULAR HGB CONC 30.5 g/dL CAL (32.0-36.0); RED BLOOD COUNT 5.29 mill/uL (4.20-5.60); RED CELL DISTRI WIDTH 14.3 % (11.5-15.5)
[2023-01-04 05:53] LABS: ALBUMIN 3.2 g/dL (3.2-5.0); CREATININE 1.2 mg/dL (0.5-1.0); MAGNESIUM 1.8 mg/dL (1.6-2.3); POTASSIUM 3.4 mmol/l (3.5-5.1); TOTAL PROTEIN 5.6 g/dL (6.3-8.2)
[2023-01-04 06:17] LABS: BILIRUBIN, TOTAL 0.1 mg/dL (0.02-1.3)
[2023-01-04 06:49] VITALS: BP 146/74
[2023-01-04] MEDS ORDERED: PREDNISONE10 MG PO (08:20)
[2023-01-04] MEDS ORDERED: VIBRAMYCIN100 M2 PO (08:22)
[2023-01-04] MEDS ORDERED: ROBITUSSIN AC10 ML PO (08:22)
[2023-01-04 10:36] VITALS: BP 135/63
[2023-01-04 11:45] VITALS: BP 117/65
[2023-01-04 14:40] VITALS: BP 123/54
== END 2023-01-04 16:47 ==
LOC: ED 07:34 → ED-I 11:20 → ED 11:49 → MS2 11:50
PROVIDERS: Emergency Medicine; Internal Medicine; ADMIT Internal Medicine; ATTEND Internal Medicine
DX: J44.1 Chronic obstructive pulmonary disease with (acute) exacerbation (principal); J96.21 Acute and chronic respiratory failure with hypoxia; J96.22 Acute and chronic respiratory failure with hypercapnia; I11.0 Hypertensive heart disease with heart failure; I50.32 Chronic diastolic (congestive) heart failure; E11.65 Type 2 diabetes mellitus with hyperglycemia; I25.10 Atherosclerotic heart disease of native coronary artery without angina pectoris; I48.91 Unspecified atrial fibrillation; E87.6 Hypokalemia; F41.9 Anxiety disorder, unspecified; F32.A Depression, unspecified; G47.33 Obstructive sleep apnea (adult) (pediatric); L10.0 Pemphigus vulgaris; I08.0 Rheumatic disorders of both mitral and aortic valves; Z87.440 Personal history of urinary (tract) infections; Z86.73 Personal history of transient ischemic attack (TIA), and cerebral infarction without residual deficits; Z79.4 Long term (current) use of insulin; Z95.1 Presence of aortocoronary bypass graft; Z99.81 Dependence on supplemental oxygen; Z79.01 Long term (current) use of anticoagulants; Z20.822 Contact with and (suspected) exposure to COVID-19; Z23 Encounter for immunization

== ENCOUNTER 2024-08-30 09:11 | Emergency (ER) | payer MEDICARE, MEDICAID ==
[~2024-08-30] VITALS: Ht 162.6 cm; Wt 108.0 kg
[2024-08-30] VITALS (20 sets, daily range): BP systolic 60–157; BP diastolic 24–135
[~2024-08-30 09:11] MED LIST changes: +ALLERGY RE50 MCG/ACT NAB; +CIPROFLOXACN500 MG PO; +HYDROXYZ HCL25 MG PO; +HYDROXYZINE HYD25 MG; +MECLIZINE 2525 MG; +METFORMIN HCL500 M2 PO; +METOPROLOL SUCC50 MG PO; +MOUNJARO7.5 MG SC; +OZEMPIC2 MG; +PEPCID20 MG PO; +PHARBETOL500 MG PO; +ROBITUSSIN AC10 ML PO; +STOOL SOFTENER100 M1 PO; +TRELEGY ELLIPTA1 AER INHW/SPAC; +TRESIBA FL200 UNIT/M SC; +ULTRAM50 MG PO; +VIBRAMYCIN100 M2 PO
[2024-08-30 09:36] LABS: BASO% 0.5 % (0-3); EOS% 7.9 % (0-8); HEMOGLOBIN 11.9 g/dl (12.0-16.0); IMMATURE GRANULOCYTES 0.1 % (0.0-5.0); LYMPH% 23.1 % (15-41); MEAN CELL VOLUME 88.4 fL CALC (80.0-100.0); MEAN CORPUSCULAR HGB 27.7 pG CALC (26.0-32.0); MEAN CORPUSCULAR HGB CONC 31.3 g/dL CAL (32.0-36.0); MONO% 6.7 % (2-13); NEUT# 5.81 thou/uL (2.00-7.15); NEUT% 61.7 % (42-76); RED BLOOD COUNT 4.3 mill/uL (4.20-5.60); RED CELL DISTRI WIDTH 14.1 % (11.5-15.5)
[2024-08-30 09:44] LABS: ALKALINE PHOSPHATASE 90 u/l (38-126); ANION GAP 9 (6-22 (CALC)); BILIRUBIN, TOTAL 0.4 mg/dL (0.02-1.3); BUN 19 mg/dL (8-23); BUN/CREATININE RATIO 16 (12-20 (CALC)); CARBON DIOXIDE 30 mmol/l (22-30); CHLORIDE 104 mmol/l (95-108); CREATININE 1.2 mg/dL (0.5-1.0); ESTIMATED GFR 47 ML/MIN (>=90 (CALC)); POTASSIUM 4.2 mmol/l (3.5-5.1); SGOT/AST 23 u/l (9-36); SODIUM 139 mmol/l (137-146)
[2024-08-30 09:46] LABS: ALBUMIN 3.6 g/dL (3.2-5.0)
== END 2024-08-30 13:15 | disposition home or self-care (01) ==
LOC: ED 09:11
PROVIDERS: Nurse Practitioner
DX: R06.02 Shortness of breath (principal); I13.0 Hypertensive heart and chronic kidney disease with heart failure and stage 1 through stage 4 chronic kidney disease, or unspecified chronic kidney disease; E11.22 Type 2 diabetes mellitus with diabetic chronic kidney disease; N18.30 Chronic kidney disease, stage 3 unspecified; I50.9 Heart failure, unspecified; I25.10 Atherosclerotic heart disease of native coronary artery without angina pectoris; J44.9 Chronic obstructive pulmonary disease, unspecified; F41.9 Anxiety disorder, unspecified; Z95.1 Presence of aortocoronary bypass graft; Z99.81 Dependence on supplemental oxygen; Z95.5 Presence of coronary angioplasty implant and graft; Z79.4 Long term (current) use of insulin; Z79.84 Long term (current) use of oral hypoglycemic drugs